=== PATIENT | male | born 1935 | race Caucasian/White ===

== ENCOUNTER 2018-03-15 07:40 | Inpatient (IN) | payer MEDICARE ==
[2018-03-15] MEDS ORDERED: Piperacillin/Tazobactam 4.5 GM VIAL ONE (09:26)
[2018-03-15 09:29] LABS: Bilirubin Small (Negative); Blood, Urine Small (Negative); Clarity CLOUDY (Clear); Glucose, Urine (Dipstick) Negative (Negative); Leukocyte Negative (Negative); Nitrite Negative (Negative); Protein, Urine (Dipstick) 100 mg/dL (Neg-Trace); Urobilinogen 0.2 mg/dL (0.2-1.0)
[2018-03-15 09:33] LABS: Bacteria/HPF None Seen HPF (None Seen); Hyaline Casts/LPF 7-10 HYALINE CAST LPF (0-3 Hyaline); Squamous Epithelial 0-3 HPF (0-3); WBC/HPF 0-3 HPF (0-3)
[2018-03-15] MEDS ORDERED: Acetaminophen 1,000 MG in Premix Bag 1 BAG IVPB SCH (11:00)
[2018-03-15] MEDS ORDERED: Dextrose 5 % And 0.9 % NaCl 1,000 ML IV SCH (11:45)
[2018-03-15 11:55] VITALS: BMI 29.4
[2018-03-15] MEDS ORDERED: Dextrose 5% in Water 1,000 ML IV PRN (12:27)
[2018-03-15] MEDS ORDERED: Dextrose 50% Abboject 50 ML SYRINGE SLOW IVP PRN (12:27)
[2018-03-15] MEDS ORDERED: HumaLOG 300 UNITS/3 ML VIAL SC PRN ×2 (12:27)
[2018-03-15] MEDS ORDERED: Ondansetron HCl/PF 4 MG/2 ML Vial IVP PRN (12:27)
[2018-03-15] MEDS ORDERED: Ondansetron ODT 4 MG TAB PO PRN (12:27)
[2018-03-15] MEDS ORDERED: Vancomycin HCl 1 GM in Sodium Chloride 0.9% 250 ML 250 ML IVPB SCH (12:30)
[2018-03-15] MEDS ORDERED: Acetaminophen/Codeine 30-300mg Tablet PO PRN (12:36)
[2018-03-15 13:42] LABS: Lactic Acid 1.9 mmol/L (0.5-2.2)
[2018-03-15] MEDS ORDERED: Vancomycin HCl 1.5 GM in Sodium Chloride 0.9% 250 ML 300 ML IVPB SCH (14:00)
[2018-03-15] MEDS: Sodium Chloride 0.9% 1,000 ML IV SCH ×2 (14:50→20:21)
[2018-03-15] MEDS: cefTRIAXone\\ROCEPHIN 2 GM in Sodium Chloride 0.9% 100 ML IVPB SCH (14:50)
[2018-03-15 15:29] LABS: Troponin I 1.851 ng/mL (< 0.028)
--- NOTE | 2018-03-15 16:06 | CON ---
DATE OF CONSULTATION: 03/15/2018 CONSULTING PHYSICIAN: ER Dept CONSULTED PHYSICIAN: Oz Brown M.D. REASON FOR CONSULTATION: Kidney stone and flank pain. HISTORY OF PRESENT ILLNESS: Mr. Sauer is an 82-year-old white male who was transferred from [facility] to [facility] in [place] for issues regarding a ureteral stone with significant comorbidities. The patient has been dealing with this kidney stone for the past several weeks now. He recently saw a urologist at [facility] who had diagnosed this stone on CT and a 7 mm proximal left ureteral stone. He had originally got a KUB for plans for ESWL; however, the stone was radiolucent or at least obscured by significant constipation. The plan was originally to do a bowel prep and then attempt to get another KUB to see if the stone could be visualized. Unfortunately, during this time, the patient's significantly declined with increasing shortness of breath, weakness, decreasing urine output and significant malaise. At no point did he have any fevers or chills. When he became so weak and stopped urinating, the called the ambulance and he was taken to [facility]. He underwent labs and a CT scan there which demonstrated a creatinine of 3.8 and white count of [address] demonstrating the stone in an unchanged position with mild hydronephrosis on the left. The patient was still unable to urinate and was then transferred to [facility] for higher level of care. Upon arrival here, I was consulted and met with the patient who states that he is complaining of approximately 7-10 pain in the left, which is sharp and stabbing and radiating down towards the groin. He has not had any nausea or vomiting, just pain. He denies shortness of breath. He denies any chest pain, denies fevers, but states he feels very bad and feels weak. He is answering some questions, but does not answer many questions. His does provide a lot of a history for him. He apparently at baseline does not have a significant difficulty with urination. He does have a prior history of kidney stones. He does not normally have problems with urinary tract infections. He denies any previous urologic surgeries on the prostate or kidney. ALLERGIES: None. CURRENT MEDICATIONS: 1. Aspirin. 2. Glyburide/metformin. 3. Carvedilol. 4. Lasix. 5. Baby aspirin. 6. Trajenta 7. Unspecified heart medication for CHF PAST MEDICAL HISTORY: 1. Coronary artery disease. 2. Congestive heart failure. 3. Type 2 diabetes. 4. Hypertension. 5. History of transient ischemic attack. 6. Elevated cholesterol. 7. Obesity. 8. Obstructive sleep apnea. PAST SURGICAL HISTORY: 1. Carotid endarterectomy. 2. A 5-vessel CABG. 3. Tonsillectomy. FAMILY HISTORY: Noncontributory. SOCIAL HISTORY: The patient does not smoke. He denies illicit drug use and does not drink alcohol. He is currently and lives with his . REVIEW OF SYSTEMS: A 12-point review of systems is significant for malaise, significant weakness, poor urine output, lower extremity swelling, difficulty with ambulation, shortness of breath, significant flank pain. He probably denies fever, chills, nausea, vomiting, blood in his stools, diarrhea, he does have constipation. The remainder of 12-point review of systems was reviewed and otherwise negative. PHYSICAL EXAMINATION: VITAL SIGNS: Temperature 97, pulse 93, blood pressure is 79/64, respiration rate 22, saturation 94% on 2 liters nasal cannula. GENERAL: Appears uncomfortable, is poorly communicative, appears in moderate amount of distress. Appears stated age. Otherwise, well-nourished, well- developed. HEENT: Normocephalic, atraumatic. Sclerae are nonicteric. Pupils symmetric and round. There is a carotid endarterectomy scar on the right. NECK: Trachea is midline. CARDIOVASCULAR: Regular rate and rhythm. Normal S1 and S2. CHEST: Increased work of breathing, but no significant respiratory distress. There is a median sternotomy scar, bibasilar crackles, symmetric expansion of lungs. ABDOMEN: Soft, nondistended. There is tenderness on the left flank. Positive left CVA tenderness. Protuberant belly. No organomegaly as the patient has got significant ____(07:33). GENITOURINARY: Rangel catheter in place draining mercedes colored urine upon placement of the catheter, only approximately 300 mL of urine was released, which appears heavily concentrated. EXTREMITIES: No clubbing or cyanosis, 1+ edema bilaterally. MUSCULOSKELETAL: No joint deformities or joint erythema noted. The patient does have full range of motion, but had significant lower extremity weakness. Upper extremities are slightly weak, but the patient is able to move all extremities equally. NEUROLOGIC: Cranial nerves II-XII appear grossly intact. There are no obvious motor or sensory deficits identified. SKIN: Warm, dry, poor turgor. PSYCHIATRIC: Alert and oriented x3, appropriate mood and affect. LABORATORY AND X-RAY FINDINGS: No new labs were taken from our institution. Previous labs demonstrate a creatinine of 3.8, BUN of 49, sodium level of 137, potassium of 4.5. A BNP of 970. White count of 10.8. Troponin of 0.227. Urinalysis done here demonstrates 100 protein, small blood, small bilirubin, 4- 6 red cells, nitrite negative, leukocyte esterase negative, no bacteria seen. CT from [facility] demonstrates a 7 x 4 x 4 mm left proximal ureteral stone with mild hydronephrosis and significant perinephric stranding, multiple simple renal cyst, nonobstructing left lower pole renal calculus. ASSESSMENT AND PLAN: An 82-year-old white male with multiple comorbidities with current hypotension along with acute kidney injury on chronic renal failure with oliguria, probably with evidence of volume overload based on BNP and symptoms with a left ureteral stone which is causing the patient pain. This is a very complicated case which required significant coordination of care. I have spoken with Dr. Kaur in Anesthesia, Dr. Kaufman in Radiology. With discussion of possibility of ureteral stenting or nephrostomy tube for decompression of the left kidney, the kidney did not have significant hydronephrosis, but I suspect that is the case because the patient is oliguric and not producing much urine. Most of his urine production is probably being shunted to the right kidney which is the favored side if it is unobstructed. The patient is currently taking his aspirin and Dr. Kaufman feels that it would be difficult or dangerous to attempt multiple passes of the needle to attempt to get a nondilated collecting system which would increase the patient's risk for perinephric hematoma. He feels that this may be able to be achieved by dedicated interventional radiologist, which we currently do not have at the time. From my standpoint speaking with Anesthesia, they feel that he is extremely high risk to undergo any kind of sedation, attempts to do TIWA would be difficult as he would be high risk for conversion, intubation, and rapid sequence intubation, which would potentially require succinylcholine which could cause arrhythmia if the patient has significant elevations to cath him with his kidney failure. Also, his heart is in bad shape and Anesthesia could potentially worsen this. In essence, he has no very good options here. I discussed two options with both Anesthesia and Radiology as well as the patient and his . One would be considered transfer of care to a higher level facility, which has currently dedicated Interventional Radiology on-call. At which point, he could have a nephrostomy tube placed which would alleviate his pain and he can undergo medical resuscitation for his heart failure. Alternatively, he could stay here and undergo medical management for optimization of his blood pressure and heart failure as well as pain control and Lasix administration. At which point, if he ends up with more hydronephrosis on the left side with increased urine production, then may be I will replace nephrostomy tube. Of these two options, I thought transfer would be the better option as the patient is significantly complex and they have severe deterioration while here. However, the family is somewhat undecided and reluctant about getting transferred again and it is not entirely reasonable for them to attempt care here. That said at the current time, he is not really a candidate for ureteral stent with anesthesia or an epidural/spinal according to Anesthesiology and the radiologist does not feel that he is currently adequate for nephrostomy tube, so from my standpoint, I do not think I have any options to offer that the current time other than the previously outlined plan. We will make further recommendations with the ER doctor and Hospitalist would be letting currently to the ICU. If the decision is to transfer, then I will support his notes to the receiving facility. If his option is to stay here, then I will continue to follow along and we will plan for a renal ultrasound in the morning. If it demonstrates more hydronephrosis, I think we could consider nephrostomy tube placement at that time. I agree with prophylactic antibiotics at the current time and I will defer to his cardiovascular resuscitation by the medical team. Obviously pain medication should be used sparingly as needed as they may cause further hypotension and acute kidney injury. I would avoid NSAIDs and Toradol in this individual and I will continue to follow along in this complex care. MAURICE
--- NOTE | 2018-03-15 16:22 | HP ---
DATE OF ADMISSION: 03/15/2018 PRIMARY CARE PROVIDER: Dr. Morgan Sher. CHIEF COMPLAINT: General weakness and abdominal pain. HISTORY OF PRESENT ILLNESS: This is an 82-year-old male who presents to [facility] cy Department in transfer from [facility] where patient initially presented with increased abdominal pain, general weakness, lethargy, decreased appetite and no urination over 24 dawn rs. The patient apparently developed symptoms in the last 48-72 hours with progressive weakness, inc reasing abdominal pain, localizing to the left lower quadrant and left flank area with associated dys uria, but no nausea or vomiting. The patient's last bowel movement was in the last 48 hours and appa rently normal per his report. Patient denied any blood in the urine or stool and denies any recent t ravel history. The patient's appetite has decreased as stated previously as well as activity level a nd alertness. According to the , the patient is normally very attentive, alert; however, over th e last 24-48 hours has become more sleepy and less interactive. The patient's history is significant for a myocardial infarction sustained in 12/2017 as well as a TIA sustained in 02/2018. The patient also underwent a right carotid endarterectomy in 02/2018 but states he has never really fully recove red and had his energy level returned after this procedure. The patient denied any recent visual dis turbance, unilateral weakness, difficulty with speech, or headache. The patient denied any specific change to his chronic medication regimen. In the emergency room, the patient underwent general evalu ation including CT imaging of the abdomen without contrast showing evidence of a 7 mm left mid ureter al calculus with mild hydronephrosis and perinephric stranding. The patient also was noted hypotensi ve, receiving intravenous fluids after concern for sepsis. The patient was noted with a temperature max of 100 degrees Fahrenheit receiving IV Zosyn, Ofirmev, and D5 half normal saline. The patient wa s noted with persistent hypotension, mildly responsive to fluids. The patient was evaluated by the U rology service in the emergency room with recommendations for stabilization of vital signs due to hig h surgical risk for intervention such as a cystoscopy or placement of percutaneous nephrostomy tubes. The patient was transferred to the Intermediate Care Unit for further evaluation and stabilization. PAST MEDICAL HISTORY: 1. Coronary artery disease. 2. Status post myocardial infarction with cardiac stent placement. 3. History of renal lithiasis. 4. History of transient ischemic attack. 5. Carotid artery disease. 6. Hypertension. 7. Hyperlipidemia. 8. Diabetes mellitus type 2. PAST SURGICAL HISTORY: 1. Status post right carotid endarterectomy, 02/2018. 2. Status post coronary artery bypass grafting x2 vessels. 3. Status post cardiac stent placement. 4. Status post tonsillectomy. CURRENT MEDICATIONS: 1. Tylenol No. 3, 300/60 mg 1 tab p.o. q.6 hours p.r.n. 2. Enteric-coated aspirin 81 mg p.o. daily. 3. Coreg 25 mg p.o. b.i.d. 4. Lasix 40 mg p.o. daily. 5. Glyburide/metformin 5/500 mg 1 tab p.o. b.i.d. 6. Zofran 4 mg p.o. q.4 hours p.r.n. 7. Crestor 10 mg p.o. at bedtime. 8. Entresto 24/26 mg 1 tab p.o. b.i.d. 9. Brilinta 90 mg p.o. b.i.d. ALLERGIES: No known drug allergies. FAMILY HISTORY: Positive for hypertension. SOCIAL HISTORY: The patient is and resides in [place], [place]. Retired. No current alcoho l, tobacco or illicit drug use. REVIEW OF SYSTEMS: The following complete review of systems was negative, unless otherwise mentioned in the HPI or below: Constitutional: Weight loss or gain, ability to conduct usual activities. Sk in: Rash, itching. Eyes: Double vision, pain. ENT/Mouth: Nose bleeding, neck stiffness, pain, te nderness. Cardiovascular: Palpitations, dyspnea on exertion, orthopnea. Respiratory: Shortness of breath, wheezing, cough, hemoptysis, fever or night sweats. Gastrointestinal: Poor appetite, abdom inal pain, heartburn, nausea, vomiting, constipation, or diarrhea. Genitourinary: Urgency, frequenc y, dysuria, nocturia. Musculoskeletal: Pain, swelling. Neurologic/Psychiatric: Anxiety, depressio n. Allergy/Immunologic: Skin rash, bleeding tendency. PHYSICAL EXAMINATION: VITAL SIGNS: Currently, blood pressure 82/42, pulse 97, respiratory rate is 16, temperature 99.3 deg jayashree Fahrenheit, O2 saturation 94% on 2 liters per minute by nasal cannula. GENERAL APPEARANCE: This is an 82-year-old male, alert when engaged in conversation with s ome lethargy when not engaged in conversation, oriented x3 and in no acute distress. HEENT: Pupils are equal, round, and reactive to light and accommodation. Extraocular muscles are in tact. No scleral icterus, no conjunctival injection. Nares patent. OP is clear. Oral mucosa dry a ppearing. NECK: Supple, no cervical adenopathy. Post-surgical changes in the right anterior neck consistent w ith recent endarterectomy. Mild edema noted. No thyromegaly. Cervical spine with full active and p assive range of motion. CHEST: Lungs are clear to auscultation bilaterally. CARDIOVASCULAR: S1, S2, without murmur, rub or gallop. ABDOMEN: Obese with mild distention. Bowel sounds are positive in all 4 quadrants. Mild tenderness to palpation in the left flank region. No palpable mass. No rebound or guarding noted. EXTREMITIES: Bilateral pitting edema to the mid shins. Pulses palpable distally at the dorsalis ped is, posterior tibial, and popliteal arteries bilaterally. Capillary refill less than 2 seconds. NEUROLOGIC: Alert and oriented x3. Mild lethargy. Answers questions when directly engaged in conve rsation. Cranial nerves II-XII are grossly intact. No other focal or lateralizing signs appreciated . PERTINENT LABORATORY AND X-RAY FINDINGS: Sodium 137, potassium 4.5, chloride 104, CO2 of 21, BUN 50, creatinine 3.8, estimated GFR 16, calcium 8.65, glucose 68. LFTs within normal limits. Albumin 3.4 . CK-MB 1.4, troponin 0.227. BNP 977. CBC showed a white blood cell count of 10.38, hemoglobin 9.3 , hematocrit 29, platelet count 202 with 85% neutrophilia. PT 15, INR 1.2. CT of the abdomen and pe lvis without contrast showed a 7 x 4 x 4 mm mid left ureteral obstructing calculus with moderate left hydronephrosis and marked perinephric stranding. EKG dated 03/15/2018 by my interpretation shows si nus mechanism with heart rates in the 90s. Attenuated R waves noted in the precordial leads. Intrav entricular block noted. Normal axis. No acute ST-T wave changes appreciated. ASSESSMENT AND PLAN: 1. Septic shock. The patient will be admitted to the intermediate care unit. We will continue aggr essive IV fluid hydration with normal saline. The patient received appropriate sepsis protocol fluid resuscitation initially in the emergency room. We will continue normal saline at 125 mL per hour. We will consider vasopressors if clinically indicated. Currently, patient responding to IV fluid res uscitation. The patient initially received Zosyn in the emergency room. We will continue vancomycin 1 gram IV x1 now with additional Rocephin 2 grams IV q.24 hours. Blood and urine cultures pending. 2. Left ureteral obstructing calculus. Consult Urology service for monitoring. The patient likely will need percutaneous nephrostomy tube placement within the next 24 hours. We will continue IV hydr ation and monitor renal status. No current recommendation to pursue extraction of the calculus due t o unstable vital signs and recurrent sepsis. 3. Acute kidney injury secondarily to #2. We will continue IV fluid hydration and monitor I's and O 's. Avoid diuretics. Avoid nephrotoxic agents and contrast media. Repeat creatinine in the a.m. 4. Acute metabolic encephalopathy. Suspect secondarily to #1. We will continue treatment as outlin ed in #1 with general supportive measures. Serial neurologic assessment. 5. Chronic normocytic anemia. Stable currently. We will continue serial CBC monitoring. No curren t evidence of acute blood loss. 6. Status post right carotid endarterectomy. Stable currently. We will continue general supportive measures. Continue aspirin 81 mg daily. 7. Diabetes mellitus type 2. Insulin sliding scale for reflexive coverage. Hold oral hypoglycemics due to acute kidney injury. Accu-Cheks a.c. and at bedtime. 8. Prophylaxis. Sequential compression devices while in bed. Pepcid 20 mg p.o. b.i.d. PT evaluati on in the a.m. 9. Code status is DO NOT RESUSCITATE, confirmed with the patient and . Surrogate medical decisi on maker is patient's spouse. Total critical care time is 45 minutes.
[2018-03-15] MEDS ORDERED: Aspirin 325 MG TAB PO SCH (17:00)
[2018-03-15 19:09] LABS: Troponin I 2.955 ng/mL (< 0.028)
[2018-03-15] MEDS ORDERED: Enoxaparin Sodium 100 MG/ML SYRINGE SC SCH (19:30)
[2018-03-15] MEDS: TICAGRELOR 90 MG TABLET PO SCH (20:17)
[2018-03-15] MEDS: Famotidine 20 MG TAB PO SCH (20:18)
[2018-03-15] MEDS: Rosuvastatin 10 MG TAB PO SCH (20:18)
[2018-03-16 04:29] LABS: ALT (SGPT) 9 U/L (8-55); AST (SGOT) 19 U/L (5-34); Albumin 2.3 g/dL (3.4-4.8); Alkaline Phosphatase 47 U/L (40-150); Anion Gap 8 mmol/L (10-20); BUN (Urea Nitrogen) 44 mg/dL (8.4-25.7); Bilirubin, Total 0.5 mg/dL (0.2-1.2); Calc. Creatinine Clearance 24 mL/min (70-130); Carbon Dioxide 14 mmol/L (23-31); Chloride 119 mmol/L (98-107); Estimated GFR-MDRD 19; Globulin 1.9 g/dL (2.4-3.5); Magnesium 1.1 mg/dL (1.6-2.6); Potassium 3.1 mmol/L (3.5-5.1); Protein, Total 4.2 g/dL (5.8-8.1); Sodium 138 mmol/L (136-145)
[2018-03-16 04:35] LABS: Calcium 5.9 mg/dL (7.8-10.44); Glucose 59 mg/dL (83-110)
[2018-03-16 05:00] LABS: Band 1 % (5-11); Hemoglobin 6.5 g/dL (14.0-18.0); Lymphocytes 6 % (21-51); MDiff Complete? YES; Mean Corpuscular HGB CONC 33.4 g/dL (32.0-36.0); Mean Corpuscular Hemoglobin 30.1 pg (27.0-31.0); Mean Corpuscular Volume 90.1 fl (80.0-94.0); Mean Platelet Volume 8.8 fL (7.4-10.4); Monocytes 7 % (0-10); Neutrophil 86 % (42-75); Platelet Count 140 thou/uL (130-400); RBC Distribution Width 16.7 % (11.5-14.5); Red Blood Cell (RBC) Count 2.17 mill/uL (4.70-6.10); White Blood Cell (WBC) Count 7.2 thou/uL (4.8-10.8)
[2018-03-16] MEDS: Sodium Chloride 0.9% 1,000 ML IV SCH ×4 (08:30→23:11)
[2018-03-16] MEDS: Enoxaparin Sodium 100 MG/ML SYRINGE SC SCH ×2 (08:31→08:39)
[2018-03-16] MEDS: Famotidine 20 MG TAB PO SCH ×2 (08:32→20:09)
[2018-03-16] MEDS: Calcium Carbonate 500 MG TAB PO SCH ×2 (08:32→17:08)
[2018-03-16] MEDS: Aspirin 81 mg Enteric Coated Tablet PO SCH (08:32)
[2018-03-16] MEDS: TICAGRELOR 90 MG TABLET PO SCH (08:32)
[2018-03-16 11:18] LABS: #Eosinphils 0.1 thou/uL (0.0-0.7); #Lymphocytes 0.5 thou/uL (1.20-3.40); #Monocytes 0.7 thou/uL (0.11-0.59); #Neutrophils 9.4 thou/uL (1.40-6.50); %Basophils 0.1 % (0.0-1.0); %Eosinophils 0.6 % (0.0-10.0); %Lymphocytes 4.8 % (21.0-51.0); %Monocytes 6.8 % (0.0-10.0); %Neutrophils 87.7 % (42.0-75.0); Hemoglobin 9.1 g/dL (14.0-18.0); Mean Corpuscular HGB CONC 32.5 g/dL (32.0-36.0); Mean Corpuscular Hemoglobin 29.1 pg (27.0-31.0); Mean Corpuscular Volume 89.5 fl (80.0-94.0); Mean Platelet Volume 8.7 fL (7.4-10.4); Platelet Count 197 thou/uL (130-400); RBC Distribution Width 16.7 % (11.5-14.5); Red Blood Cell (RBC) Count 3.11 mill/uL (4.70-6.10); White Blood Cell (WBC) Count 10.7 thou/uL (4.8-10.8)
[2018-03-16] MEDS: cefTRIAXone\\ROCEPHIN 2 GM in Sodium Chloride 0.9% 100 ML IVPB SCH (12:09)
--- NOTE | 2018-03-16 12:14 | PRG ---
DATE OF SERVICE: 03/16/2018 SUBJECTIVE: The patient states that he is feeling alright today. He is having occasional bladder sp asms and some cramping on the left side, but otherwise states he has not had any significant chest pa in, shortness of breath, difficulty breathing or uncontrolled pain and no nausea, vomiting, fevers or chills. He has not had a bowel movement in several days and feels extremely constipated and is aski ng for some help for relief with this. PHYSICAL EXAMINATION: VITAL SIGNS: Temperature 98.9, pulse 94, respirations 18, blood pressure 91/57, saturation 96% on ro om air. Ins and outs: The patient had 2400 mL total intake with 534 mL of total output. GENERAL: Appears slightly uncomfortable, but otherwise is communicative and alert, answering questio ns appropriately. CARDIOVASCULAR: Regular rate and rhythm. Normal S1 and S2. CHEST: Bibasilar crackles. Slight increased work of breathing, but symmetric expansion of lungs. ABDOMEN: Protuberant, soft, no palpable bladder, nontender, nondistended, positive bowel sounds. GENITOURINARY: Rangel catheter is in place. It appears to have a very small amount of mercedes colored urine. The catheter was irrigated with approximately 120 mL of normal saline which flushed easily. There is no evidence of blood or sediment within the catheter. EXTREMITIES: 1+ edema bilaterally. LABORATORY EVALUATION: A full set of labs in the [employer] system, which I have reviewed. Of note, t he patient's hemoglobin was 6.5 as of 3:39. Repeat check at 11 o'clock was 9.1. White count is 10.7 , creatinine is currently 3.13, which has improved somewhat. Troponins continue to slowly trend upwa rds at 2.955. Urine and blood cultures currently have demonstrated no growth, but are currently pend ing. ASSESSMENT AND PLAN: An 82-year-old white male with an obstructing stone on the left with minimal hy dronephrosis at the time of presentation. He has received a significant amount of fluids and has poo r urine output, likely secondary to third spacing and renal failure. I would like to repeat an ultra sound today to see if there is more hydronephrosis with his resuscitative efforts. If there is, then I think he should go for a percutaneous nephrostomy tube. He is currently on antibiotics for presum ptive sepsis although nothing has grown at this time and the patient has remained afebrile. It is po ssible that he was meeting a systemic inflammatory response syndrome criteria at the time of admissio n. He should continue on IV antibiotics for now. We will get the ultrasound and see if he will be a menable for a nephrostomy tube. I would recommend continuation of the Rangel catheter for the time be ing. Given the patient's constipation, I will go ahead and start him on lactulose which should not h ave any effect on his renal function or electrolyte levels. The rest of his medical issues are curre ntly being managed by Medicine or other consultants that have been consulted for him. I will continu e to follow along and make recommendations.
--- NOTE | 2018-03-16 12:17 | CON ---
DATE OF CONSULTATION: 03/16/2018. REASON FOR CONSULTATION: Congestive heart failure, hypotension, probable sepsis, coronary artery dis ease, recent carotid endarterectomy. HISTORY OF PRESENT ILLNESS: Mr. Sauer is an 82-year-old man with multiple medical problems as outlin ed above. Mr. Sauer has received most of his care at the [facility] system. The patient has undergone co ronary artery bypass grafting in the mid 1999s x5. He underwent repeat cardiac catheterization and s tent implantation over a year ago by Dr. Bimal Guevara in [place]. The other grafts were patent. The patient also had carotid endarterectomy after TIAs. The carotid endarterectomy was done recently less than a month ago at the [facility] institution. The patient to begin getting abdominal pain, progressive weakness and no urination. He was found to have renal failure, thought to be septic as well as hydronephrosis. [facility] PAST MEDICAL HISTORY: 1. Coronary artery disease complicated as outlined above. 2. Previous myocardial infarction, previous stent. 3. History of congestive heart failure. 4. History of transient ischemic attack. 5. History of carotid arterial disease with post-surgery. 6. History of hypertension, but blood pressure has been low recently. PAST SURGICAL HISTORY: 1. Carotid endarterectomy, 03/06/2018. 2. Bypass surgery in the mid 1999s x5, according to the patient's , who is a very good historian . 3. Previous cardiac stent implantation over a year ago in [place]. MEDICATIONS PRIOR TO ADMISSION: 1. Aspirin. 2. Coreg. 3. Lasix. 4. Crestor. 5. Entresto. 6. Brilinta. ALLERGIES: None known. FAMILY HISTORY: Positive for hypertension. SOCIAL HISTORY: He is , lives in [place]. No alcohol or drugs. REVIEW OF SYSTEMS: Not currently obtainable. He is very sleepy, does not answer questions and is mi ldly confused. PHYSICAL EXAMINATION: VITAL SIGNS: Blood pressure was 82/42 last night, now at 86 systolic. Pulse 90s. HEENT: Eyes, sclerae nonicteric. Mouth mucous membranes moist. NECK: Supple, no lymphadenopathy. LUNGS: Clear, no wheezing, rales or rhonchi. CARDIAC: Normal S1, normal S2. There is no murmur, rub or gallop. ABDOMEN: Soft, nontender, no hepatosplenomegaly. EXTREMITIES: Warm, dry, no clubbing or cyanosis. There is moderate edema. PERTINENT LABORATORY DATA: Creatinine is 3.8. The hemoglobin dropped all the way down to 6.5, it wa s 9.3 in [place]. Creatinine is 3.1. GFR is 19. IMAGING: The EKG appears to have a bundle branch block. I actually do not see the 12-lead on the art. We will order EKG and did have a nonsustained episode of V-tach at 12 beats of V-tach. Echocardiogram has been ordered. EKG in [place] did reveal normal sinus rhythm with nonspecific in traventricular conduction delay. ASSESSMENT: 1. Congestive heart failure, probably advanced with systolic, chronic. 2. Renal failure, acute, stage 4 now. 3. Probable sepsis. 4. Previous bypass surgery. 5. Previous stent implantation. 6. Severe anemia. 7. Hypotension. 8. Recent carotid endarterectomy. PLAN: 1. Recheck blood counts, will probably need packed red blood cells. 2. Stop Lovenox. 3. Stop Brilinta. 4. Current code status: Do not resuscitate. 5. Intravenous antibiotics. We will continue to follow with you. Prognosis guarded.
--- NOTE | 2018-03-16 13:06 | PDOC.PN ---
- Subjective Encounter Start Date: 03/16/18 Encounter Start Time: 13:05 Subjective: f/u for septic shock and L ureteral calculus with obstruction managed -: with IVF's, IV abx. BP maintained in 90's. Minimal urine output per -: nursing. Feels better overall, less confused. - Objective Resuscitation Status: Resuscitation Status DNR:Do Not Resuscitate MAR Reviewed: Yes Vital Signs & Weight: Vital Signs (12 hours) Temp Pulse Resp BP Pulse Ox 03/16/18 11:18 98.9 F 94 18 91/57 L 96 03/16/18 10:00 92 20 86/51 L 97 03/16/18 07:35 98.0 F 87 16 90/50 L 98 03/16/18 07:29 98 F 82 20 100 03/16/18 03:00 98.6 F 82 24 H 94/54 L 100 Weight Weight 205 lb I&O: 03/15/18 03/16/18 03/17/18 06:59 06:59 06:59 Intake Total 2400 240 Output Total 534 Balance 1866 240 Result Diagrams: 03/16/18 11:02 03/16/18 03:39 Additional Labs: Accuchecks 03/16/18 03/16/18 03/15/18 10:51 05:40 21:04 POC Glucose 193 H 81 183 H 03/15/18 16:16 POC Glucose 150 H Microbiology 03/15/18 17:40 Urine voided Urine Culture - Preliminary NO GROWTH AT 12 HOURS 03/15/18 09:26 Venous blood - Right Hand Blood Culture - Preliminary Specimen has been received and culture in progress. No Growth to date. 03/15/18 09:26 Venous blood - Left Hand Blood Culture - Preliminary Specimen has been received and culture in progress. No Growth to date. Laboratory Tests 03/15/18 03/15/18 03/16/18 14:52 18:33 03:39 Hgb 6.5 L Neutrophils % Neutrophils % (Manual) 86 H Troponin I 1.851 H* 2.955 H* 03/16/18 11:02 Hgb Neutrophils % 87.7 H Neutrophils % (Manual) Troponin I EKG Reviewed by me: Yes (Tele - SR with short run SVT) Phys Exam - Physical Examination alert, responds to questions HEENT: PERRLA, moist MMs, sclera anicteric, oral pharynx no lesions R neck with surgical changes consistent with R CEA Neck: no nodes, no JVD, supple, full ROM Respiratory: no wheezing, no rales, no rhonchi, clear to auscultation bilateral S1, S2 Cardiovascular: RRR, no significant murmur, no rub, gallop mild distention Gastrointestinal: soft, non-tender, positive bowel sounds LE edema bilat Musculoskeletal: pulses present Neurological: normal sensation, moves all 4 limbs A x O x 2 Skin: no rash, normal turgor, cap refill <2 seconds Deviation from normal: Rangel catheter with scant, dark urine Dx/Plan (1) SIRS (systemic inflammatory response syndrome) Code(s): R65.10 - SIRS OF NON-INFECTIOUS ORIGIN W/O ACUTE ORGAN DYSFUNCTION Status: Acute Comment: Blood/Ucx negative today, continue empiric IV abx given ureteral calculus, await final blood cx results (2) Left ureteral calculus Code(s): N20.1 - CALCULUS OF URETER Status: Acute Comment: Renal sono today to assess for hydronephrosis and whether nephrostomy tubes can be placed, continue IV abx as stated in #1 (3) Oliguria Code(s): R34 - ANURIA AND OLIGURIA Status: Acute Comment: Secondary to #1, # 2, continue IVF's, avoid nephrotoxic meds and contrast, continue Rangel catheter (4) ELVA (acute kidney injury) Code(s): N17.9 - ACUTE KIDNEY FAILURE, UNSPECIFIED Status: Acute Comment: Mild improvement in creatinine value but urine output diminished, see above (5) Hypokalemia Code(s): E87.6 - HYPOKALEMIA Status: Acute Comment: KCL 40meq BID, repeat K + level in am (6) Encephalopathy, metabolic Code(s): G93.41 - METABOLIC ENCEPHALOPATHY Status: Acute Comment: Persistent but improved, multifactorial, continue supportive mgmt (7) Metabolic acidosis Code(s): E87.2 - ACIDOSIS Status: Acute Comment: Secondary to ELVA, tx underlying etiology, percutaneous nephrostomy tubes planned (8) Elevated troponin I level Code(s): R74.8 - ABNORMAL LEVELS OF OTHER SERUM ENZYMES Status: Acute Comment: Likely demand ischemia in context of SIRS, ureteral calculus and hx of CAD, consult Cardiology, Lovenox given x 1 (9) DM II (diabetes mellitus, type II), controlled Code(s): E11.9 - TYPE 2 DIABETES MELLITUS WITHOUT COMPLICATIONS Status: Chronic Comment: ISS, serial accuchecks (10) Normocytic anemia Code(s): D64.9 - ANEMIA, UNSPECIFIED Status: Chronic Comment: hematuria noted in Rangel catheter due to ureteral calculus, no other evidence of active loss, serial H/H - Plan plan discussed w/ family, continue antibiotics, PT/OT, sr. social media & mobile manager Continue Rocephin and Vancomycin pending final blood/Ucx results -: Decrease IVF's 100ml/h -: KCL 40meq BID -: Renal sono today to assess for hydronephrosis -: AM Lab: BMP, CBC * .
[2018-03-16] MEDS ORDERED: Potassium Chloride 20 MEQ TAB PO SCH (13:30)
[2018-03-16 13:51] LABS: Vancomycin, Random 15.4 ug/mL (See Comment)
--- NOTE | 2018-03-16 14:08 | CON ---
DATE OF CONSULTATION: 03/16/2018 HISTORY OF PRESENT ILLNESS: Mr. Sauer is an 82-year-old male, who was admitted with ureteral obstruc tion. He was hypotensive on admission. He is in intermediate care unit. Blood cultures so far negative. Urine culture was actually negativ e as well. We were consulted because of his presence in intermediate care unit. PAST MEDICAL HISTORY: Remarkable for; 1. Nephrolithiasis in the past. 2. History of coronary artery disease. 3. History of coronary stenting. 4. History of transient ischemic attack. 5. History of carotid disease. 6. History of hypertension. 7. Lipid disorder. 8. Diabetes. 9. Recent carotid endarterectomy done in [place]. 10. History of a coronary artery bypass grafting x2. 11. History of tonsillectomy. MEDICATIONS: Prior to admission he was on aspirin, Coreg, Lasix, glyburide, metformin, Zofran, Crest or, Entresto, Brilinta. SOCIAL HISTORY: He lives in [place]. He is nonsmoker, nondrinker, does not use drugs. FAMILY HISTORY: Positive for hypertension. Negative for lung disease. ALLERGIES: He has no reported drug allergies. REVIEW OF SYSTEMS: Essentially negative ten point. He says he feels much better than he felt yester day. PHYSICAL EXAMINATION: GENERAL: He is afebrile, heart rate 94, respiratory rate is 18, oximetry is 96 on room air, blood pr essure 91/57. HEAD AND NECK: Unremarkable. LUNGS: Clear. HEART: Regular rhythm. S1 and S2 are normal. ABDOMEN: Soft and nontender. EXTREMITIES: Without clubbing, cyanosis, or edema. LABORATORY DATA: His hemoglobin was 6.5 this morning, it is 9.1 now; white count 10.7. I do not see any orders for tr ansfusion in the computer. Urology has been consulted. IMPRESSION: Ureteral obstruction. There was no intervention performed so far, unfortunately he is n ot bacteremic and has negative urine cultures. She will continue with volume resuscitation. His creatinine 3.13. It is unclear to me what his baseline is. There is no prior renal function lab . His albumin is 2.3. He might benefit from 25% albumin to help with his blood pressure. We will foll ow with the other physicians caring for him while he is in the Intermediate Care Unit. This is a 50 minute consult, greater than 50% of the time was spent on the unit coordinating care.
[2018-03-16] MEDS: Vancomycin HCl 750 MG in Sodium Chloride 0.9% 250 ML 250 ML IVPB SCH (14:19)
--- NOTE | 2018-03-16 16:38 | ULT ---
RENAL ULTRASOUND: HISTORY: Evaluate for hydronephrosis. The patient has an obstructing calculus in the left kidney. COMPARISON: None. CORRELATION: Recent CTs performed at the [facility] on 03/15/2018 and on 03/12/2018. FINDINGS: Bilateral renal cortical cysts are again noted. Bilaterally, no hydronephrosis. The right kidney measures 12 x 6 x 6.2 cm. The left kidney measures 6.6 x 7.1 x 13.7 cm. The urinary bladder is decompressed due to the Rangel catheter. Incidental distended gallbladder, measuring 11.3 cm. IMPRESSION: 1. No hydronephrosis. 2. Bilateral renal cortical cysts, better demonstrated on recent CT. 3. Incidental gallbladder distention. POS: ALEXANDRA
[2018-03-16] MEDS: Albumin 25% 25 GM/100 ML BOT IVPB SCH ×2 (17:08→23:12)
[2018-03-16] MEDS: Potassium Chloride 20 MEQ TAB PO SCH ×2 (17:08→18:15)
[2018-03-16] MEDS: Rosuvastatin 10 MG TAB PO SCH (20:09)
[2018-03-17] MEDS: Albumin 25% 25 GM/100 ML BOT IVPB SCH ×4 (05:18→23:33)
[2018-03-17 06:20] LABS: Anion Gap 17 mmol/L (10-20); BUN (Urea Nitrogen) 64 mg/dL (8.4-25.7); Calc. Creatinine Clearance 14 mL/min (70-130); Calcium 7.9 mg/dL (7.8-10.44); Carbon Dioxide 14 mmol/L (23-31); Chloride 111 mmol/L (98-107); Estimated GFR-MDRD 10; Glucose 214 mg/dL (83-110); Potassium 5.1 mmol/L (3.5-5.1); Sodium 137 mmol/L (136-145)
[2018-03-17 06:43] LABS: Band 8 % (5-11); Hemoglobin 8.1 g/dL (14.0-18.0); Lymphocytes 9 % (21-51); MDiff Complete? YES; Mean Corpuscular Hemoglobin 29.3 pg (27.0-31.0); Mean Corpuscular Volume 88.8 fl (80.0-94.0); Monocytes 5 % (0-10); Neutrophil 78 % (42-75); Platelet Count 183 thou/uL (130-400); RBC Distribution Width 16.7 % (11.5-14.5); Red Blood Cell (RBC) Count 2.76 mill/uL (4.70-6.10); White Blood Cell (WBC) Count 8.7 thou/uL (4.8-10.8)
[2018-03-17] MEDS: Potassium Chloride 20 MEQ TAB PO SCH (08:23)
[2018-03-17] MEDS: Aspirin 81 mg Enteric Coated Tablet PO SCH (08:24)
[2018-03-17] MEDS: Calcium Carbonate 500 MG TAB PO SCH ×2 (08:24→16:23)
[2018-03-17] MEDS: Famotidine 20 MG TAB PO SCH ×2 (08:24→20:49)
[2018-03-17] MEDS: Sodium Chloride 0.9% 1,000 ML IV SCH ×3 (08:36→20:49)
[2018-03-17] MEDS ORDERED: Furosemide 40 MG/4 ML VIAL SLOW IVP SCH (09:30)
--- NOTE | 2018-03-17 10:15 | PRG ---
DATE OF SERVICE: 03/17/2018 SUBJECTIVE: Mr. Sauer is more awake and alert today. He is cooperative. Physical therapy indicates that he is mildly confused, but more cooperative than yesterday. PHYSICAL EXAMINATION: VITAL SIGNS: His blood pressure 117/62, which is better; pulse 84 and regular. LUNGS: He has some bibasilar rales. CARDIOVASCULAR: Normal S1 and S2. ABDOMEN: Soft, nontender. EXTREMITIES: [id number] peripheral edema. PERTINENT LABORATORIES: Potassium is up to 5.1. He did not receive potassium today. Creatinine is up to 5.56 ASSESSMENT: 1. Renal failure, acute, becoming volume overloaded. 2. History of congestive heart failure, systolic. PLAN: 1. Reduce intravenous fluid to 80 mL per hour. 2. Give him a single dose of furosemide. 3. Stop potassium. 4. Suspect that if he does not start making urine soon, will probably need dialysis if the family wi shes to pursue that.
[2018-03-17] MEDS: cefTRIAXone\\ROCEPHIN 2 GM in Sodium Chloride 0.9% 100 ML IVPB SCH (12:26)
[2018-03-17 13:27] LABS: Vancomycin, Trough 20.8 ug/mL
[2018-03-17] MEDS: Vancomycin HCl 750 MG in Sodium Chloride 0.9% 250 ML 250 ML IVPB SCH (14:07)
--- NOTE | 2018-03-17 15:33 | PDOC.PN ---
- Subjective Encounter Start Date: 03/17/18 Encounter Start Time: 15:30 Subjective: f/u for ELVA/CKD with L ureteral calculus and suspected SIRS. Renal function -: worse today and urine output minimal. Had a difficult and restless night -: and sleeping most of the day. Appetite diminished. + BM. - Objective Resuscitation Status: Resuscitation Status DNR:Do Not Resuscitate MAR Reviewed: Yes Vital Signs & Weight: Vital Signs (12 hours) Temp Pulse Resp BP Pulse Ox 03/17/18 12:50 97.6 F 86 16 109/59 L 96 03/17/18 07:45 97.5 F L 84 14 117/62 96 03/17/18 07:19 97.5 F L 84 17 95 03/17/18 03:52 97.5 F L 84 17 107/62 98 Weight Weight 210 lb 1.6 oz I&O: 03/16/18 03/17/18 03/18/18 06:59 06:59 06:59 Intake Total 2400 3144.5 Output Total 534 135 Balance 1866 3009.5 Result Diagrams: 03/17/18 04:53 03/17/18 04:53 Additional Labs: Accuchecks 03/17/18 03/17/18 03/17/18 11:28 05:47 02:52 POC Glucose 215 H 222 H 229 H 03/16/18 03/16/18 20:07 16:08 POC Glucose 228 H 200 H Radiology Reviewed by me: Yes (2D echo - EF 25-30%, LAE, PA 50mmHg) EKG Reviewed by me: Yes (Tele - SR in 80's) Phys Exam - Physical Examination lethargic, opens eyes briefly HEENT: PERRLA, moist MMs, sclera anicteric, oral pharynx no lesions Neck: no nodes, no JVD, supple, full ROM few basilar crackles o/w clear Respiratory: no wheezing, no rhonchi S1, S2 Cardiovascular: RRR, no significant murmur, no rub, gallop mild distention Gastrointestinal: soft, non-tender, positive bowel sounds Musculoskeletal: pulses present, edema present lethargic but opens eyes to name, states a few words Neurological: normal sensation, moves all 4 limbs Skin: no rash, normal turgor, cap refill <2 seconds Deviation from normal: Rangel with scant, dark urine Dx/Plan (1) ATN (acute tubular necrosis) Code(s): N17.0 - ACUTE KIDNEY FAILURE WITH TUBULAR NECROSIS Status: Acute Comment: Suspect due to hypoperfusion injury, start Dopamine 2.5mcg IV today, avoid nephrotoxic meds and limit contrast exposure, renal dosing of medications , consult Nephrology, ? need for HD (2) SIRS (systemic inflammatory response syndrome) Code(s): R65.10 - SIRS OF NON-INFECTIOUS ORIGIN W/O ACUTE ORGAN DYSFUNCTION Status: Acute Comment: Blood/Ucx negative today, continue empiric IV abx given ureteral calculus, await final blood cx results (3) Left ureteral calculus Code(s): N20.1 - CALCULUS OF URETER Status: Acute Comment: Potential ureteral stent placement per Urology, no hydronephrosis noted on renal sono (4) ELVA (acute kidney injury) Code(s): N17.9 - ACUTE KIDNEY FAILURE, UNSPECIFIED Status: Acute Comment: Worsened renal function, likely multifactorial, no hydronephrosis documented on renal sono but urine output minimal (5) Hypokalemia Code(s): E87.6 - HYPOKALEMIA Status: Acute Comment: KCL 40meq BID, repeat K + level in am (6) Encephalopathy, metabolic Code(s): G93.41 - METABOLIC ENCEPHALOPATHY Status: Acute Comment: Persistent but improved, multifactorial, continue supportive mgmt (7) Metabolic acidosis Code(s): E87.2 - ACIDOSIS Status: Acute Comment: Secondary to ELVA, consider sodium bicarbonate gtt (8) Elevated troponin I level Code(s): R74.8 - ABNORMAL LEVELS OF OTHER SERUM ENZYMES Status: Acute Comment: Likely demand ischemia in context of SIRS, ureteral calculus and hx of CAD, consult Cardiology, Lovenox given x 1 (9) DM II (diabetes mellitus, type II), controlled Code(s): E11.9 - TYPE 2 DIABETES MELLITUS WITHOUT COMPLICATIONS Status: Chronic Comment: ISS, serial accuchecks (10) Normocytic anemia Code(s): D64.9 - ANEMIA, UNSPECIFIED Status: Chronic Comment: hematuria noted in Rangel catheter due to ureteral calculus, no other evidence of active loss, serial H/H - Plan plan discussed w/ family, continue antibiotics, PT/OT, social media assistant, DVT proph w/SCDs Continue supportive mgmt -: Start Dopamine for inotropic support -: Albumin 25gm IV q6h -: Continue IV NS 80ml/h -: Consult Nephrology today regarding ATN * AM lab: BMP, Vancomycin trough
[2018-03-17] MEDS ORDERED: DOPamine 400 MG/D5W 250 ML 250 ML IVPB SCH (15:45)
--- NOTE | 2018-03-17 16:05 | PRG ---
DATE OF SERVICE: 03/17/2018 SUBJECTIVE: Mr. Sauer is still intermittently confused and somnolent. His family is in the room and states that he never has fully recovered from myocardial infarction fol lowed by TIA. These events occurred within the last few weeks. He actually had a scheduled appointment I believe at the beginning of next week. Follow up with his signing agent. OBJECTIVE: VITAL SIGNS: He is afebrile, heart rate 86, respiratory rate 16, oximetry is 96 on room air. Blood pressure 109/59. LABORATORY DATA: Blood and urine cultures remain negative. After talking to family, it has become more my impression that his weaknesses may be the limiting fac tor with regards to management of his multiple medical problems. IMPRESSION: 1. Ureteral obstruction. 2. Decompensating renal function with the creatinine that has gone from 3 to 5.5. Potassium is 5.1 today. 3. Diabetes. His family says I believe his creatinine was in the 2-3 range prior to this admission. His prognosis is quite guarded. He is in no respiratory distress at this time. Dr. Amezcua has cut b ack on his IV fluids, which I would agree with.
--- NOTE | 2018-03-17 17:27 | PRG ---
DATE OF SERVICE: 03/17/2018 SUBJECTIVE: The patient states he is having no pain. He feels fine. He denies any chest pain or sh ortness of breath. His blood pressure and vitals have been better; however, his creatinine continues to decline with poor urine output. He has not shown any signs of progressing sepsis. PHYSICAL EXAMINATION: VITAL SIGNS: Temperature 97.5, pulse 84, respirations 14, blood pressure 117/62, saturation 96% on r oom air. Ins and outs 3.1 liters in, 135 mL output. GENERAL: No apparent distress, somnolent, does answer questions appropriately. CARDIOVASCULAR: Regular rate and rhythm. Normal S1 and S2. Symmetric pulses. CHEST: No increased work of breathing. Symmetric expansion of lungs with bibasilar crackles. ABDOMEN: Soft, nontender, nondistended, no organomegaly. Positive bowel sounds. No significant sup rapubic tenderness. GENITOURINARY: Rangel catheter in place with scant amount of urine output. EXTREMITIES: No clubbing, cyanosis or edema. LABORATORY DATA AND IMAGING DATA: On laboratory evaluation, a full set of labs in the [facility], which I have reviewed. Of note, the patient's hemoglobin is currently 8.1 with white count of 8.7 . Creatinine has further increased to 5.56. Renal ultrasound done yesterday demonstrates no evidenc e of hydronephrosis on either side. ASSESSMENT AND PLAN: An 82-year-old white male with renal failure, likely prerenal secondary to hear t failure with no evidence of hydronephrosis and severe oliguria. He does have an obstructing stone on the left and although I do not think a stent will dramatically improve his renal function, it will help somewhat in draining his left kidney and improve whatever function is present. I do think the patient needs a Nephrology consult as he may need to be dialyzed if he becomes volume overloaded due to his extremely poor urine output. I have spoken with Dr. Loera and Dr. Loera states that he is [facility] consulting Dr. Stewart. I have discussed with Dr. Loera and he feels that the patient would benefit fr om a ureteral stent. I think the stent would be beneficial also for prevention of further episodes o f sepsis, flank pain or flank colic which seemed to have precipitated the current septic episode caroline g with his cardiovascular decline on his recent ER visit with this admission. This may present again in the future if the stone shift or the patient began producing urine again. Therefore, I think sin ce the patient is hemodynamically stable at the moment, it may be beneficial to proceed forward with ureteral stent. Obviously, if his sand hauler or disability advocate feels this is not safe, then we will cancel the procedure with so long as we can go forward with a light sedative such as TIVA alone. I think a quick ureteral stent placement should prevent further problems in the future, and may potenti ally help the patient's kidney function slightly, although I think the majority of his renal failure is likely prerenal again. I have discussed this with the patient and explained the risks associated with anesthesia as well as the risk of ureteral stenting. The risks which include but are not limite d to bleeding, worsening urinary infection, inability to pass the stent, damage to the ureter, kidney or bladder, and need for further procedures. He understands and states he would be willing to go fo ard with ureteral stent. I will have the anesthesiologist talked to him and give their assessment as well. If anyone feel that he is exceedingly high risk, then we will obviously cancel the surgery as his primary problem again is probably not postrenal at this point. We will plan for his stent shannan ow and I will continue to follow along.
[2018-03-17 17:56] LABS: Bilirubin Moderate (Negative); Blood, Urine Large (Negative); Clarity TURBID (Clear); Glucose, Urine (Dipstick) Negative (Negative); Leukocyte Large (Negative); Nitrite Positive (Negative); Protein, Urine (Dipstick) 100 mg/dL (Neg-Trace); Specific Gravity, Urine 1.014 (1.002-1.036)
[2018-03-17 18:00] LABS: Yeast-AUWi Flag 1033.7 (0-25.0)
[2018-03-17 18:14] LABS: RBC/HPF GREATER THAN 50-TNTC HPF (0-3)
[2018-03-17 18:15] LABS: Bacteria/HPF 3+ HPF (None Seen); Crystals/HPF 1+ AMORPH URATES HPF (Negative); Hyaline Casts/LPF 0-3 HYALINE CAST LPF (0-3 Hyaline); Manual Microscopic Reviewed? No Path Casts Seen; Other Casts/LPF 4-6 FINELY GRAN LPF (0-3 Hyaline); Yeast-All Forms None Seen HPF (None Seen)
[2018-03-17] MEDS: Rosuvastatin 10 MG TAB PO SCH (20:49)
--- NOTE | 2018-03-17 23:16 | CON ---
DATE OF CONSULTATION: 03/17/2018 HISTORY OF PRESENT ILLNESS: Mr. Sauer is an 82-year-old white male who was initially admitted due to generalized weakness and abdominal pain. Initial evaluation showed that he may have nephrolithiasis with some degree of mild hydronephrosis. Urology has evaluated this patient. Initially, it was fel t that he may need percutaneous nephrostomy, but repeat imaging did not show any significant hydronep hrosis to have the percutaneous tube placed. The patient is also being considered for the possibilit y of sepsis. He has also been noted hypotensive since admission. Renal function has been worsening. Initially, h e was empirically volume repleted with no improvement with renal function. He was noted to also have decreased significantly urine output. We are now being consulted for the acute kidney injury on top of possible underlying chronic renal failure. REVIEW OF SYSTEMS: Positive for confusion. Positive for abdominal distention. No nausea, decreased appetite, decreased energy level. No chest pain or shortness of breath, no gross hematuria, no dysu fidel, no urinary frequency. Positive for back pain, no sore throat, no diplopia. MEDICATIONS: Currently on salt poor albumin 25 grams IV q.6, calcium carbonate 500 mg p.o. b.i.d., c eftriaxone 2 grams IV daily, dopamine drip, furosemide 60 mg IV x1 dose - currently on hold, lactulos e 20 grams t.i.d., normal saline at 80 mL per hour, rosuvastatin 10 mg at bedtime, vancomycin q.24 ho urs. PAST MEDICAL HISTORY: Coronary artery disease? of CHF, TIA, peripheral vascular disease, type 2 diab etes mellitus, hyperlipidemia, ? of chronic renal failure. PAST SURGICAL HISTORY: 1. Status post right carotid endarterectomy. 2. Status post cardiac catheterization. 3. Status post CABG. 4. Status post coronary stent placement. 5. Status post upper and lower GI endoscopy? SOCIAL HISTORY: The patient lives in [place], , five children with three as adopted. No IV drug abuse. Patient to start sedentary lifestyle. Currently, no alcohol or smoking. ALLERGIES: None. TRAUMA: None. IMMUNIZATIONS: Not up to date. HOSPITALIZATIONS: Please see past medical history. FAMILY HISTORY: No family history of ESRD. PHYSICAL EXAMINATION: VITAL SIGNS: Blood pressure is 96/70, heart rate 70. GENERAL: Arousable, confused, not in overt distress. SKIN: Adequate turgor. HEENT: Slightly pale conjunctivae, anicteric sclerae. NECK: No neck mass, no carotid bruits, no JVD. CHEST: No deformities. LUNGS: Decreased breath sounds, no wheezing. HEART: Normal sinus rhythm, grade 2/6 systolic murmur, no gallops or rubs. ABDOMEN: Globular, soft, nontender, no masses, ? of ascites. EXTREMITIES: Positive for edema. NEUROLOGIC: Confused, moving all extremities. No tremors. No asterixis. Decreased mentation. LABORATORY DATA: Laboratories of 03/17/2018; white count 8.7, hemoglobin 8.1. Sodium 137, potassium 5.1, chloride 111, carbon dioxide 14, BUN 64, creatinine 5.56, glucose 214, calcium 7.9. Further re view of serum creatinine shows the following; 03/08/2018 creatinine 3.1. Urine sodium and urine crea tinine of 03/17/2018, pending. Repeat urinalysis is pending. IMAGING DATA: 1. Renal ultrasound on 03/08/2018 showed no hydronephrosis, bilateral renal cortical cysts and gallb ladder mildly distended. 2. On 03/08/2018, cardiac echo showed an EF of 25%-30%. 3. On 03/15/2018, urinalysis shows specific gravity 1.020, protein is 100, no pigmented granular lita ts, RBC 4-6, WBC 0-3. ASSESSMENT AND PLAN: Acute kidney injury on top of his chronic renal failure - superimposed prerenal azotemia. The patient was initially noted to be hypotensive. In addition, empiric volume repletion did not improve his renal function and actually worsening. The possibility of decreased renal perfu marybeth from an underlying congestive heart failure. Please note his EF is markedly decreased. It is also possible that this patient may have developed an acute tubular necrosis due to the persist ent hypotension and possible sepsis. For the moment, agree with gentle volume repletion with this pa tient. He is currently on salt poor albumin and on dopamine support. There is no indication at the present time for any acute dialytic intervention. I did discuss the possibility of dialysis with the patient's . For the moment, continue current salt poor albumin and gentle volume repletion. Continue dopamine cross pport for hypotension. We will be reviewing another urine sediment with this patient to see if he may have developed overt a cute tubular necrosis. Urine chemistries are currently pending. Review of the renal ultrasound shows no obstruction. Thank you for the consult. We will continue to follow.
[2018-03-18 04:41] LABS: Anion Gap 19 mmol/L (10-20); BUN (Urea Nitrogen) 69 mg/dL (8.4-25.7); Calc. Creatinine Clearance 12 mL/min (70-130); Calcium 8.2 mg/dL (7.8-10.44); Carbon Dioxide 13 mmol/L (23-31); Chloride 112 mmol/L (98-107); Estimated GFR-MDRD 8; Glucose 150 mg/dL (83-110); Iron 14 ug/dL (65-175); Iron Binding Capacity, Total 124 mcg/dL (261-462); Potassium 5.4 mmol/L (3.5-5.1); Sodium 139 mmol/L (136-145)
[2018-03-18] MEDS: Albumin 25% 25 GM/100 ML BOT IVPB SCH ×3 (05:39→18:14)
--- NOTE | 2018-03-18 09:24 | PRG ---
DATE OF SERVICE: 03/18/2018 RENAL MEDICINE SUBJECTIVE: Mr. Sauer is an 82-year-old white male, which was seen by the Renal Service for his acut e kidney injury. He was initially admitted for generalized weakness and abdominal pain. He was foun d to have some nephrolithiasis and ? of mild hydronephrosis. However, subsequent reevaluation showed no hydronephrosis. We are now following this patient for his acute kidney injury. With his history of hemodynamic instability, he was felt to have developed acute tubular necrosis. His renal functio n was improving in spite of volume repletion. I did review the repeat urinalysis yesterday and showe d pigmented granular casts suggestive of ATN. No improvement in renal function has been noted in the last 24 hours. PHYSICAL EXAMINATION: GENERAL: The patient is awake but confused. VITAL SIGNS: Blood pressure is 117/68, heart rate 91, respiratory rate 19, temperature 97.1, and pul se ox 95%. GENERAL: The patient is awake, but confused, not in distress, obese. SKIN: Adequate turgor. HEENT: Pinkish conjunctivae. Anicteric sclerae. NECK: No neck mass, no carotid bruits, no JVD. CHEST: No deformities. LUNGS: Decreased breath sounds. HEART: Normal sinus rhythm. No murmurs, no gallops, no rubs. ABDOMEN: Globular, soft, nontender, no masses. EXTREMITIES: Trace edema. MEDICATIONS: Medications of 03/18/2018 was reviewed. LABORATORY DATA: Laboratories of 03/17/2018; white count 8.7, hemoglobin 8.1. On 03/18/2018, sodium 139, potassium 5.4, chloride 112, carbon dioxide 13, BUN 69, creatinine 6.39, g lucose 150. Urine 14, ferritin 1112. ASSESSMENT AND PLAN: 1. Acute kidney injury - I did review the repeat urinalysis and it showed pigmented granular casts s uggesting superimposed acute tubular necrosis. Renal function has been worsening. In addition, his urine output is markedly decreased. My bias is to initiate hemodialysis. The family will rediscuss it among themselves. I left my cell phone number, they will call me for a decision. 2. For the moment, continue supportive care. 3. Mild hyperkalemia - we will continue to observe. 4. Metabolic acidosis - most likely related to his acute kidney injury. Overall, prognosis remains guarded.
--- NOTE | 2018-03-18 10:08 | PRG ---
DATE OF SERVICE: 03/18/2018 HISTORY: Mr. Sauer looks less comfortable today. PHYSICAL EXAMINATION: VITAL SIGNS: Blood pressure 117/68, pulse 90. LUNGS: Clear. CARDIAC: Normal S1, S2. ABDOMEN: Looked like ascites. EXTREMITIES: There is increasing edema. The weight is up to 213 pounds. He was 205 a couple of days ago. Put in a positive 2.6 liters yeste rday and 3 liters the day before. ASSESSMENT: 1. Volume overload. 2. Coronary artery disease. 3. Congestive heart failure with volume overload. PLAN: 1. Stop dopamine. There was no improvement in the urinary output. 2. Reduce fluid. 3. He will need dialysis soon to remove fluid.
[2018-03-18] MEDS ORDERED: Iothalamate Meglumine 60% 50 ML VIAL FS ONE (11:42)
[2018-03-18] MEDS ORDERED: Fentanyl 100 MCG/2 ML VIAL ONE (12:01)
[2018-03-18] MEDS: Calcium Carbonate 500 MG TAB PO SCH ×2 (12:39→17:52)
[2018-03-18] MEDS: Aspirin 81 mg Enteric Coated Tablet PO SCH (12:39)
[2018-03-18] MEDS: Famotidine 20 MG TAB PO SCH ×2 (12:41→22:07)
--- NOTE | 2018-03-18 13:04 | PRG ---
DATE OF SERVICE: 03/18/2018 SUBJECTIVE: The patient has been confused overnight with some difficulty with memory. He does have lucid intervals, but otherwise is not complaining of any pain, flank pain, chest pain, shortness of b reath, or any other worsening symptoms. His creatinine continues to worsen and Dr. Stewart has seen him and is considering a dialytic intervention. Both Dr. Loera and Dr. Amezcua are felt that he probably i s not going to significantly improve in the near future and that his blood pressure is probably the b est is going to be at the current time. I discussed with the already about placement of uretera l stent with the associated known high risks of anesthesia and intervention versus the potential bene fits of having a stent in if there is return of kidney function. PHYSICAL EXAMINATION: VITAL SIGNS: Temperature 97.1, pulse 91, respirations 19, blood pressure 117/68, and saturation 92% on room air. GENERAL: No apparent distress, somnolent somewhat communicative, but does not answer questions compl etely appropriately. CARDIOVASCULAR: Irregularly irregular, normal rate. Symmetric pulses. CHEST: No increased work of breathing, bibasilar crackles. ABDOMEN: Protuberant, soft, nontender, nondistended with positive bowel sounds. GENITOURINARY: Rangel catheter in place with scant mercedes colored urine. EXTREMITIES: 2+ edema. No clubbing or cyanosis. LABORATORY DATA: The full set of labs in the [employer] system, which I have reviewed. Of note, the p atient's hemoglobin is 8.1 with a white count of 8.7, creatinine is now 6.39 with potassium of 5.4. Urine and blood cultures are all negative at 48 hours. ASSESSMENT AND PLAN: An 82-year-old white male with acute tubular necrosis and acute renal failure, likely is going to require dialysis secondary to volume overload. He has no hydronephrosis and his r enal failure is not likely obstructive at this time; however, the patient did have presumed sepsis pr eviously and currently is extremely oliguric if he does have any return of renal function, it is very important that both of his kidneys are unobstructed and allowing to drain freely. Given that this s cenario, I discussed going for ureteral stent at this time given that his blood pressure is optimized as good as can be. Alternatively, we discussed the options with the of waiting and seeing how he does without ureteral stenting, but she is concerned as [facility] about the potential for the persistent obstruction on the left kidney, which may impair a return of renal function. As such, we have agreed to move forward with a cystoscopy with left ureteral stent placement. There is a sig nificant risk of anesthesia, but we are using the lowest form of anesthesia possible with just TIVA a t lowest dose possible for a minimal requirement of this sedation. We will then plan for stent place ment if there is any difficulty with stent placement or the stent is not passing, I have told the wif e, I would not plan for a prolonged stay in the OR and we will probably abort the procedure and wake him up to avoid the complications of prolonged sedatives. I have also discussed DNR with the benny wei she states that she would be okay with chemical intervention or electric cardioversion, but agreed that she would not want chest compressions or prolonged intubation. We will plan to go to the operat ing room for cystoscopy and left ureteral stent placement and the patient will return back to the ICU afterwards for continued medical care.
[2018-03-18] MEDS ORDERED: Promethazine HCl 25 MG/ML VIAL IM PRN (13:19)
[2018-03-18] MEDS ORDERED: Ondansetron HCl/PF 4 MG/2 ML Vial IVP PRN (13:19)
[2018-03-18] MEDS ORDERED: Promethazine HCl 25 MG/ML VIAL SLOW IVP PRN (13:19)
--- NOTE | 2018-03-18 13:36 | RAD ---
RETROGRADE IVP: INDICATIONS: Ureteral stent placement. TECHNIQUE: A single image is obtained. FINDINGS: This single image shows a double-pigtail left ureteral stent. There is no opacification of the colle cting structures presented. POS: [facility]
[2018-03-18] MEDS ORDERED: PROPOFOL 200 MG/20 ML VIAL ONE (13:46)
[2018-03-18] MEDS: cefTRIAXone\\ROCEPHIN 2 GM in Sodium Chloride 0.9% 100 ML IVPB SCH (14:11)
[2018-03-18] MEDS: Sodium Chloride 0.9% 1,000 ML IV SCH ×2 (14:15→22:09)
[2018-03-18 15:06] LABS: Vancomycin, Trough 25.2 ug/mL
--- NOTE | 2018-03-18 15:32 | PDOC.PN ---
- Subjective Encounter Start Date: 03/18/18 Encounter Start Time: 15:31 Subjective: patient seen after ureteral stent placement. denies any SOB, chest pain -: nausea or vomiting patient seen and examined after left ureteral stent placement - Objective Resuscitation Status: Resuscitation Status DNR:Do Not Resuscitate MAR Reviewed: Yes Vital Signs & Weight: Vital Signs (12 hours) Temp Pulse Resp BP Pulse Ox 03/18/18 14:15 86 16 118/61 96 03/18/18 13:56 97.7 F 92 16 105/59 L 97 03/18/18 08:00 97.1 F L 91 19 92 L 03/18/18 07:45 97.1 F L 91 19 117/68 95 03/18/18 03:48 97.6 F 87 17 106/68 96 Weight Weight 213 lb 9 oz I&O: 03/17/18 03/18/18 03/19/18 06:59 06:59 06:59 Intake Total 3144.5 2786 Output Total 135 105 Balance 3009.5 2681 Result Diagrams: 03/17/18 04:53 03/18/18 03:41 Additional Labs: Accuchecks 03/18/18 03/18/18 03/17/18 10:49 05:49 20:12 POC Glucose 164 H 156 H 169 H 03/17/18 17:33 POC Glucose 164 H Radiology Reviewed by me: Yes Phys Exam - Physical Examination Constitutional: NAD dry MM Neck: no nodes, no JVD Respiratory: no wheezing, no rales, no rhonchi Cardiovascular: RRR, no significant murmur, no rub Gastrointestinal: soft, non-tender, no distention Musculoskeletal: pulses present Skin: no rash Dx/Plan (1) ELVA (acute kidney injury) Code(s): N17.9 - ACUTE KIDNEY FAILURE, UNSPECIFIED Status: Acute Comment: Worsened renal function, likely multifactorial, no hydronephrosis documented on renal sono but urine output minimal Cr increased. likely will need HD short term. (2) ATN (acute tubular necrosis) Code(s): N17.0 - ACUTE KIDNEY FAILURE WITH TUBULAR NECROSIS Status: Acute Comment: Suspect due to hypoperfusion injury, d/c dopamine on 03/18/18 , avoid nephrotoxic meds and limit contrast exposure, renal dosing of medications, consult Nephrology, ? need for HD, likely will need this temporarily at least. family to discuss with neph (3) Left ureteral calculus Code(s): N20.1 - CALCULUS OF URETER Status: Acute Comment: no hydronephrosis noted on renal sono, stent placement on 03/18/18 in left ureter (4) Metabolic acidosis Code(s): E87.2 - ACIDOSIS Status: Acute Comment: Secondary to ELVA, stable. possible need for HD - Plan cont current plan of care, continue antibiotics * . -IV rocephin/vanc to continue urine cultures and blood cultures so far negative to date. -consider need for HD family to discuss, although in light of comorbidities, likely not beneficial in intermediate monitor renal function - s/p left ureteral stent placement today -d/c dopamine 03/18/18 due to no improvement in urine output will need HD soon as well to remove fluid
[2018-03-18] MEDS: Vancomycin HCl 750 MG in Sodium Chloride 0.9% 250 ML 250 ML IVPB SCH (16:35)
[2018-03-18 17:31] LABS: HBSAg Index 0.78 S/CO (0-0.99); Hep B Surf Ag Non-Reactive S/CO (NonReactive)
--- NOTE | 2018-03-18 19:23 | OP ---
DATE OF PROCEDURE: 03/18/2018 SERVICE: Urology. SURGEON: Oz Brown M.D. PREOPERATIVE DIAGNOSES: Left ureteral stone with acute renal failure and sepsis. POSTOPERATIVE DIAGNOSES: Left ureteral stone with acute renal failure and sepsis. PROCEDURES PERFORMED: Cystoscopy with left ureteral stent placement. INDICATIONS FOR PROCEDURE: Mr. Sauer is an 82-year-old white male with significant comorbidities inc luding a near complete renal failure at this current time with congestive heart failure, sepsis and a left ureteral stone. He is not producing much urine, presumably secondary to prerenal causes and in trinsic renal causes secondary to ATN and heart failure. That said, he does have an obstructing left stone and we had discussed placement of ureteral stent to optimize recovery of renal function. Risk s are significant including anesthetic risks. We have discussed this with the patient and his a nd they have agreed to proceed forward. DESCRIPTION OF PROCEDURE: After identification of armband and verification of consent, the patient w as brought back to the operating room. He underwent total intravenous anesthesia with very light sed ation. He was then placed in the dorsal lithotomy position and prepped and draped in usual sterile f ashion. After appropriate timeout, a lubricated 22 Czech rigid cystoscope was placed gently through the urethra and into the bladder. The prostate is mildly hypertrophic and the bladder showed some d ebris, but no obvious lesions, stones or tumors. Attention was turned to the left ureteral orifice. There was no efflux coming out of either ureter. A 0.035 sensor wire was advanced through the left ureteral orifice to the level of the stone. Some manipulation was necessary, but the wire did pass b y the stone and up into the renal pelvis. The stone was radiolucent, but it could be felt with the w mai. Once the wire was in place, a 6 x 26 double-J stent was advanced over the sensor wire to the le kandis of the renal pelvis. The wire was then removed leaving a good curl in the renal pelvis and good curl in the bladder. The bladder was left full and the cystoscope removed. A 16 Czech Rangel cathet er was then replaced back into the patient's bladder. He was then awakened and taken to PACU for rec overy in stable condition. COMPLICATIONS: None. ESTIMATED BLOOD LOSS: Minimal. RETAINED TUBES AND DRAINS: A 6 x 26 double-J stent on the left and a 16-Czech Rangel catheter to gra vity drainage. SPECIMENS: None. DISPOSITION: The patient will be admitted back to the medicine service on telemetry. He will contin ue medical management with Cardiology, Pulmonary Critical Care Medicine and Nephrology and myself.
--- NOTE | 2018-03-18 21:29 | OP ---
PREOPERATIVE DIAGNOSES: Acute renal failure, in need of acute dialysis, fluid overload; hyperkalemia ; diabetes; hypertension; cardiomyopathy. POSTOPERATIVE DIAGNOSES: Acute renal failure, in need of acute dialysis, fluid overload; hyperkalemi a; diabetes; hypertension; cardiomyopathy. PROCEDURE: Right femoral vein Trialysis catheter. SURGEON: Dr. Jair Connelly. ANESTHESIA: A 1% Xylocaine. PROCEDURE IN DETAIL: At the patient's bedside, his right groin had previously been clipped of hair a nd it was prepared with ChloraPrep, draped in routine fashion. A 1% Xylocaine infiltrated into skin and subcutaneous tissue about the operative site. Trocar catheter cannulated the femoral vein with g ood return of venous blood. J-wire threaded. Trocar catheter removed. Seldinger technique used to place a Trialysis catheter securing a 3-0 nylon suture x2. Sterile dressing applied. Each port aspi rated blood and flushed with heparinized saline solution. Patient tolerated the procedure well.
--- NOTE | 2018-03-18 21:52 | HP ---
HISTORY OF PRESENT ILLNESS: An 82-year-old male patient, lives in [place]. He has previously obta ined all of his medical and surgical care in [place]. The patient was in [place], was having some urological concerns and I am told that in [place], they secured urological consultation and the altaf aguilar came here for care. The patient has history of coronary artery disease, known congestive heart failure, 20%-25% cardiac ejection fraction by current echocardiogram this hospitalization. In early 1999, he had a myocardial infarction and coronary artery bypass grafting in 5 vessels. In the last 2 months, he has been hospitalized at [facility] for myocardial infarction requiring cat heterization and stent placement. The patient is unaware that he has had chronic kidney disease, alt binh it is likely that he has had. He has a long history of diabetes and hypertension, and has been told he has longstanding cardiomyopathy from his coronary events. He is a DNR. The patient has deteriorating renal function. Dr. Stewart has seen him and asked me to place a temporary dialysis catheter. He has a left hand IV, a right antecubital IV despite his diagnosis of acute kid rocio injury and renal failure. White count 8.7, hemoglobin 8.1, sodium 139, potassium 5.4, creatinine 6.39, BUN 69, GFR 8, glucose is 169 to 156, CO2 of 13. ALLERGIES: None. TOBACCO: None for 30 years. ALCOHOL: None. MEDICATIONS: Brilinta, Zofran, glyburide, metformin b.i.d., carvedilol 25 b.i.d., aspirin 81 mg crystal y, Tylenol p.r.n., Entresto b.i.d., Lasix 40 mg daily, Crestor 10 mg at bedtime. PAST SURGICAL HISTORY: Coronary artery bypass grafting in the mid ; carotid endarterectomy, rig ht, 3-4 weeks ago. Never has had a colonoscopy. Negative history of colon cancer. Tonsillectomy. PAST MEDICAL HISTORY: Coronary artery disease as stated above; recent stent placement after myocardi al infarction; cardiomyopathy with compromised echocardiogram with low ejection fraction, seen by Dr. Amezcua this hospitalization; history of TIA few weeks ago prior to his endarterectomy; hypertension; hyperlipidemia; diabetes mellitus type 2; overweight, 5 feet 10 inches, BMI 30. PHYSICAL EXAMINATION: VITAL SIGNS: 5 feet 10 inches, 313 pounds, BMI 30, temperature 96.2, pulse 99, blood pressure 90/55. GENERAL: The patient has overall edema, anasarca. LUNGS: Rhonchi at base. CARDIAC: Regular rate and rhythm. ABDOMEN: Soft, protuberant, obese, edematous. EXTREMITIES: Edematous. ASSESSMENT AND PLAN: 1. Acute renal failure probably superimposed on chronic. Suspect end-stage renal disease. I have p ersonally removed his right antecubital IV and informed the family not to place any more IVs. We roxana l have all blood draws from his central line. We will place a trialysis catheter and more than likel y about next week, he will need a cuffed tunneled dialysis catheter. We will discuss with Dr. Stewart. Perhaps could perform that on Friday. 2. Coronary artery disease with cardiomyopathy, recent myocardial infarction with stent a few weeks ago. Has been on Brilinta, held at this point. I will continue to hold Brilinta in case dialysis ac cess is necessary in the next 48 hours. 3. Diabetes mellitus. 4. Hypertension. 5. Status post carotid endarterectomy recently.
[2018-03-18] MEDS: Rosuvastatin 10 MG TAB PO SCH (22:07)
[2018-03-19 05:08] LABS: Anion Gap 23 mmol/L (10-20); BUN (Urea Nitrogen) 71 mg/dL (8.4-25.7); Calc. Creatinine Clearance 13 mL/min (70-130); Calcium 8.5 mg/dL (7.8-10.44); Carbon Dioxide 14 mmol/L (23-31); Chloride 111 mmol/L (98-107); Estimated GFR-MDRD 9; Glucose 110 mg/dL (83-110); Potassium 5.1 mmol/L (3.5-5.1); Sodium 143 mmol/L (136-145)
[2018-03-19 05:11] LABS: Band 1 % (5-11); Eosinophils 1 % (0-10); Lymphocytes 14 % (21-51); MDiff Complete? YES; Mean Corpuscular Hemoglobin 28.7 pg (27.0-31.0); Mean Corpuscular Volume 86.9 fl (80.0-94.0); Mean Platelet Volume 8.7 fL (7.4-10.4); Monocytes 1 % (0-10); Neutrophil 83 % (42-75); PLT Morphology Comment Appears Adequate; Platelet Count 180 thou/uL (130-400); Red Blood Cell (RBC) Count 2.78 mill/uL (4.70-6.10); White Blood Cell (WBC) Count 6.9 thou/uL (4.8-10.8)
--- NOTE | 2018-03-19 10:35 | ULT ---
BILATERAL UPPER EXTREMITY VEIN MAPPING: HISTORY: Evaluation for dialysis access. FINDINGS: RIGHT CEPHALIC VEIN: PROXIMAL HUMERUS: 2.9 mm MID HUMERUS: 2.8 mm DISTAL HUMERUS: 2.7 mm ELBOW: 3 mm PROXIMAL FOREARM: 2 mm MID FOREARM: 1.7 mm DISTAL FOREARM: 1.4 mm RIGHT BASILIC VEIN: PROXIMAL HUMERUS: 1.7 mm MID HUMERUS: 2.4 mm DISTAL HUMERUS: 1.2 mm ELBOW: 1.3 mm PROXIMAL FOREARM: 1.4 mm MID FOREARM: 1.3 mm DISTAL FOREARM: 1.1 mm LEFT CEPHALIC VEIN: PROXIMAL HUMERUS: 3.2 mm MID HUMERUS: 3.1 mm DISTAL HUMERUS: 3.9 mm (clotted) ELBOW: 4.6 mm (clotted) PROXIMAL FOREARM: 2.1 mm MID FOREARM: 2.2 mm DISTAL FOREARM: 2.2 mm LEFT BASILIC VEIN: PROXIMAL HUMERUS: 3.6 mm MID HUMERUS: 2.1 mm DISTAL HUMERUS: 1.6 mm ELBOW: 2.2 mm PROXIMAL FOREARM: 1.2 mm MID FOREARM: 1.4 mm DISTAL FOREARM: 1.1 mm RIGHT BRACHIAL ARTERY: 2.8 mm RIGHT RADIAL ARTERY: 1.7 mm RIGHT ULNAR ARTERY: 1.7 mm LEFT BRACHIAL ARTERY: 2.7 mm LEFT RADIAL ARTERY: 1.5 mm LEFT ULNAR ARTERY: 1.4 mm IMPRESSION: Dialysis measurements as discussed above. The more distal cephalic vein and the distal humerus and e lbow region show evidence of thrombus. POS: [facility]
--- NOTE | 2018-03-19 12:03 | PRG ---
DATE OF SERVICE: 03/19/2018 SUBJECTIVE: Mr. Sauer is an 82-year-old white man seen by the Renal Service for his acute kidney inj ury secondary to acute tubular necrosis. Hemodialysis was initiated yesterday. He received 1 hour d ialysis yesterday and tolerated this. He again is receiving a 2-hour hemodialysis today. He is tole rating the said treatment and fluid removal as tolerated. No other complaints. No acute events note d with this patient. Please note that the patient was seen by Dr. Brown yesterday and he underwent a cystoscopy with left ureteral stent placement for renal stone. The patient denies any chest pain or shortness of breath. OBJECTIVE: VITAL SIGNS: Blood pressure 116/55, heart rate 89, respiratory rate 14, temperature 96.9, pulse ox 9 6%. GENERAL: Noted to be awake, confused, not in distress. SKIN: Adequate turgor. HEENT: Slightly pale conjunctivae, anicteric sclerae. NECK: No neck mass, no carotid bruits, no JVD. CHEST: No deformities. LUNGS: Decreased breath sounds. HEART: Normal sinus rhythm. No murmur, no gallops, no rubs. ABDOMEN: Globular, soft, nontender, no masses. EXTREMITIES: Positive for edema. MEDICATIONS: Medications of 03/19/2018 was reviewed. LABORATORY DATA: Laboratories of 03/19/2018, white count 6.9, hemoglobin 8. Sodium 143, potassium 5 .1, chloride 111, carbon dioxide 14, BUN 71, creatinine 6.16, calcium 8.5. ASSESSMENT AND PLAN: 1. Acute kidney injury secondary to acute tubular necrosis. Continue supportive care. Due to the w orsening renal dysfunction, hemodialysis has been initiated. My plan is to do another 3-hour hemodia lysis and on Friday do a full 4-time hemodialysis. After the said treatments, he will be placed on 3 times a week dialysis. Monitor renal function for possible renal recovery 2. Nephrolithiasis -- status post cystoscopy with ureteral stent placement. 3. Anemia, p.r.n. blood transfusion. Agree with current management.
[2018-03-19] MEDS: Calcium Carbonate 500 MG TAB PO SCH ×2 (12:13→17:33)
[2018-03-19] MEDS: Aspirin 81 mg Enteric Coated Tablet PO SCH (12:14)
--- NOTE | 2018-03-19 13:54 | PDOC.PN ---
- Subjective Encounter Start Date: 03/19/18 Encounter Start Time: 13:52 patient seen in dialysis. no overnight events. slightly fatigued. no N/V/ chest pain SOB, fevers or chills - Objective Resuscitation Status: Resuscitation Status DNR:Do Not Resuscitate MAR Reviewed: Yes Vital Signs & Weight: Vital Signs (12 hours) Temp Pulse Resp BP Pulse Ox 03/19/18 11:55 94 19 112/52 L 95 03/19/18 07:57 96.9 F L 89 14 116/55 L 96 03/19/18 07:40 96.9 F L 88 15 96 03/19/18 03:52 97.6 F 88 17 121/68 96 Weight Weight 214 lb 6 oz I&O: 03/18/18 03/19/18 03/20/18 06:59 06:59 06:59 Intake Total 2786 920 Output Total 105 1150 Balance 2681 -230 Result Diagrams: 03/19/18 04:47 03/19/18 04:47 Additional Labs: Accuchecks 03/19/18 03/19/18 03/18/18 12:33 05:51 20:36 POC Glucose 111 H 114 H 156 H 03/18/18 16:53 POC Glucose 159 H Phys Exam - Physical Examination Constitutional: NAD HEENT: moist MMs, sclera anicteric Neck: no nodes, no JVD, supple Respiratory: no wheezing, no rhonchi Cardiovascular: RRR, no significant murmur, no rub Gastrointestinal: soft, non-tender, no distention Dx/Plan (1) ELVA (acute kidney injury) Code(s): N17.9 - ACUTE KIDNEY FAILURE, UNSPECIFIED Status: Acute Comment: Worsened renal function, likely multifactorial, no hydronephrosis documented on renal sono but urine output minimal Cr stable now. temp dialysis catheter placed on 03/18/18. HD today on 03/19/18 to see if can jump start kidneys as this is likely acute kidney injury (2) ATN (acute tubular necrosis) Code(s): N17.0 - ACUTE KIDNEY FAILURE WITH TUBULAR NECROSIS Status: Acute Comment: Suspect due to hypoperfusion injury, d/c dopamine on 03/18/18 , avoid nephrotoxic meds and limit contrast exposure, renal dosing of medications, consult Nephrology short term dialysis started 03/19/18 (3) Left ureteral calculus Code(s): N20.1 - CALCULUS OF URETER Status: Acute Comment: no hydronephrosis noted on renal sono, stent placement on 03/18/18 in left ureter Urine cultures, blood cultures all negative. will d/c rocephin and vanc. discontinued on 03/19/18 (4) Metabolic acidosis Code(s): E87.2 - ACIDOSIS Status: Acute Comment: Secondary to ELVA, stable. started HD on 03/19/18 - Plan cont current plan of care * . short term HD initiated to see if UOP and renal function can improve -d/c abx today given all cx negative. may also limit renal damage as well. -daily chemistries. -dispo: TBD, monitoring return of renal function after HD
[2018-03-19] MEDS ORDERED: Vancomycin HCl 500 MG in Sodium Chloride 0.9% 100 ML IVPB SCH (14:00)
--- NOTE | 2018-03-19 19:08 | PRG ---
DATE OF SERVICE: 03/19/2018 HISTORY: Mr. Sauer looks more alert today. He has undergone dialysis. I was told that he had 2 lit ers out. PHYSICAL EXAMINATION: VITAL SIGNS: His blood pressure is 126 systolic, which is the best it has been in a while, pulse 88. LUNGS: Clear. CARDIAC: Normal S1, S2. ABDOMEN: Soft, nontender. EXTREMITIES: There is moderate edema. ASSESSMENT: 1. Acute renal failure, undergoing hemodialysis. 2. Fortunately he is making some urine. 3. Congestive heart failure, systolic, chronic. 4. Coronary artery disease. 5. Hematuria, intermittent. PLAN: 1. He is on aspirin. 2. He is on low dose of normal saline, not eating or drinking much. 3. He is not on Brilinta now due to hematuria. 4. Not on carvedilol yet or Entresto due to hypotension and renal failure, carvedilol can be restart ed as blood pressure allows. We will start a low dose tomorrow.
[2018-03-19] MEDS: Rosuvastatin 10 MG TAB PO SCH (20:51)
[2018-03-19] MEDS: Famotidine 20 MG TAB PO SCH (20:51)
[2018-03-19] MEDS: Sodium Chloride 0.9% 1,000 ML IV SCH ×2 (21:41→22:30)
[2018-03-19] MEDS: Acetaminophen 500 MG TAB PO PRN (21:53)
[2018-03-20 04:44] LABS: Anion Gap 19 mmol/L (10-20); BUN (Urea Nitrogen) 59 mg/dL (8.4-25.7); Calc. Creatinine Clearance 16 mL/min (70-130); Calcium 8.7 mg/dL (7.8-10.44); Carbon Dioxide 16 mmol/L (23-31); Chloride 110 mmol/L (98-107); Estimated GFR-MDRD 11; Glucose 129 mg/dL (83-110); Potassium 4.3 mmol/L (3.5-5.1); Sodium 141 mmol/L (136-145)
[2018-03-20 05:02] LABS: Eosinophils 2 % (0-10); Hemoglobin 8.4 g/dL (14.0-18.0); Lymphocytes 9 % (21-51); MDiff Complete? YES; Mean Corpuscular HGB CONC 32.8 g/dL (32.0-36.0); Mean Corpuscular Hemoglobin 28.4 pg (27.0-31.0); Mean Corpuscular Volume 86.7 fl (80.0-94.0); Mean Platelet Volume 8.7 fL (7.4-10.4); Monocytes 3 % (0-10); Neutrophil 86 % (42-75); PLT Morphology Comment Appears Adequate; Platelet Count 182 thou/uL (130-400); RBC Distribution Width 16.9 % (11.5-14.5); RBC Morphology Normal; Red Blood Cell (RBC) Count 2.96 mill/uL (4.70-6.10); White Blood Cell (WBC) Count 6.5 thou/uL (4.8-10.8)
--- NOTE | 2018-03-20 10:05 | PRG ---
DATE OF SERVICE: 03/20/2018 SUBJECTIVE: Mr. Sauer is an 82-year-old white man seen by the Renal Service for an acute kidney inju ry secondary to acute tubular necrosis. Due to the worsening renal dysfunction and volume overload t he patient has been initiated on dialysis. I am currently at the bedside supervising his dialysis. He has no complaints of chest pain or shortness of breath. PHYSICAL EXAMINATION: VITAL SIGNS: Blood pressure 118/42, heart rate 88, respiratory rate 22, temperature 98.3, pulse ox 1 00%. GENERAL: Awake, but still confused, not in overt distress. SKIN: Adequate turgor. HEENT: Slightly pale conjunctivae, anicteric sclerae. NECK: No neck mass, no carotid bruits, no JVD. CHEST: No deformities. LUNGS: Clear breath sounds, no wheezing, no crackles. HEART: Normal sinus rhythm. No murmur, no gallops, no rubs. ABDOMEN: Globular, soft, nontender, no masses. EXTREMITIES: Trace edema. MEDICATIONS: 03/20/2018 - Reviewed. LABORATORIES: 03/20/2018 - White count 6.5, hemoglobin 8.4, sodium 141, potassium 4.3, chloride 110, carbon dioxide 16, BUN 59, creatinine 5.11, glucose 129, calcium 8.7. ASSESSMENT AND PLAN: Acute kidney injury - secondary to a presumed ischemic acute tubular necrosis. Continuing hemodialysis regimen. We are planning to do a 2-3 hour hemodialysis treatment today. Fl uid removal again as tolerated. No evidence of renal recovery at the present time. The plan is to p lace a cuffed hemodialysis catheter this coming Friday. Overall, agree with current management. Recheck base met and CBC in a.m.
[2018-03-20] MEDS: Carvedilol 3.125 MG TAB PO SCH ×2 (12:16→17:58)
[2018-03-20] MEDS: Acetaminophen 500 MG TAB PO PRN (12:16)
[2018-03-20] MEDS: Aspirin 81 mg Enteric Coated Tablet PO SCH (12:16)
[2018-03-20] MEDS: Calcium Carbonate 500 MG TAB PO SCH ×2 (12:16→17:58)
--- NOTE | 2018-03-20 15:04 | PDOC.PN ---
- Subjective Encounter Start Date: 03/20/18 Encounter Start Time: 15:02 Subjective: better, less sob - Objective Resuscitation Status: Resuscitation Status DNR:Do Not Resuscitate MAR Reviewed: Yes Vital Signs & Weight: Vital Signs (12 hours) Temp Pulse Resp BP Pulse Ox 03/20/18 11:50 97.3 F L 99 20 106/80 99 03/20/18 07:52 98.3 F 88 22 H 100 03/20/18 07:00 98.3 F 88 22 H 118/42 L 100 03/20/18 04:00 98.4 F 88 20 139/80 96 Weight Weight 218 lb 9.6 oz I&O: 03/19/18 03/20/18 03/21/18 06:59 06:59 06:59 Intake Total 920 1262 Output Total 1150 2225 Balance -230 -963 Result Diagrams: 03/20/18 03:47 03/20/18 03:47 Additional Labs: Accuchecks 03/20/18 03/20/18 03/19/18 11:52 06:22 21:17 POC Glucose 120 H 139 H 119 H 03/19/18 17:20 POC Glucose 108 Phys Exam - Physical Examination Neck: no JVD basilar rales Cardiovascular: RRR, no significant murmur Gastrointestinal: soft, positive bowel sounds Musculoskeletal: edema present Dx/Plan (1) CAD (coronary artery disease) Code(s): I25.10 - ATHSCL HEART DISEASE OF [place] CORONARY ARTERY W/O ANG PCTRS Status: Acute Qualifiers: Coronary Disease-Associated Artery/Lesion type: [place] artery [place] vs. transplanted heart: [place] heart Associated angina: without angina Qualified Code(s): I25.10 - Atherosclerotic heart disease of [place] coronary artery without angina pectoris (2) Cardiomyopathy Code(s): I42.9 - CARDIOMYOPATHY, UNSPECIFIED Status: Chronic Qualifiers: Cardiomyopathy type: other Qualified Code(s): I42.8 - Other cardiomyopathies (3) ELVA (acute kidney injury) Code(s): N17.9 - ACUTE KIDNEY FAILURE, UNSPECIFIED Status: Acute Comment: Worsened renal function, likely multifactorial, no hydronephrosis documented on renal sono but urine output minimal Cr stable now. temp dialysis catheter placed on 03/18/18. HD today on 03/19/18 to see if can jump start kidneys as this is likely acute kidney injury (4) Elevated troponin I level Code(s): R74.8 - ABNORMAL LEVELS OF OTHER SERUM ENZYMES Status: Acute Comment: Likely demand ischemia in context of SIRS, ureteral calculus and hx of CAD, consult Cardiology, Lovenox given x 1 (5) Encephalopathy, metabolic Code(s): G93.41 - METABOLIC ENCEPHALOPATHY Status: Acute Comment: Persistent but improved, multifactorial, continue supportive mgmt (6) Left ureteral calculus Code(s): N20.1 - CALCULUS OF URETER Status: Acute Comment: no hydronephrosis noted on renal sono, stent placement on 03/18/18 in left ureter Urine cultures, blood cultures all negative. will d/c rocephin and vanc. discontinued on 03/19/18 (7) SIRS (systemic inflammatory response syndrome) Code(s): R65.10 - SIRS OF NON-INFECTIOUS ORIGIN W/O ACUTE ORGAN DYSFUNCTION Status: Resolved Comment: Blood/Ucx negative today, continue empiric IV abx given ureteral calculus, await final blood cx results (8) DM II (diabetes mellitus, type II), controlled Code(s): E11.9 - TYPE 2 DIABETES MELLITUS WITHOUT COMPLICATIONS Status: Chronic Qualifiers: Diabetes mellitus complication status: with kidney complications Comment: ISS, serial accuchecks (9) Normocytic anemia Code(s): D64.9 - ANEMIA, UNSPECIFIED Status: Chronic Comment: hematuria noted in Rangel catheter due to ureteral calculus, no other evidence of active loss, serial H/H - Plan cont HD per renal -: off entresto for hypotension- discuss institution with cardiology -: cont accu/ss/cont off glyburide/ metformin * .
--- NOTE | 2018-03-20 18:09 | PDOC.CTH ---
Cardiology Progress Note - Subjective He remains confused but better than on admission per 's report. He is tolerating dialysis well . - Objective Vital Signs Temp Pulse Resp BP Pulse Ox 03/20/18 16:00 97.3 F L 99 20 98 03/20/18 11:50 97.3 F L 99 20 106/80 99 03/20/18 08:18 93 L 03/20/18 07:52 98.3 F 88 22 H 100 03/20/18 07:00 98.3 F 88 22 H 118/42 L 100 Weight 218 lb 9.6 oz 03/19/18 03/20/18 03/21/18 06:59 06:59 06:59 Intake Total 920 1262 Output Total 1150 2225 Balance -230 -963 - Physical Examination General/Neuro: NAD Neck: no JVD present Lungs: unlabored respirations Heart: RRR Abdomen: NT/ND Extremities: other: (no edema) - Telemetry Telemetry Rhythm: NSR - Labs Result Diagrams: 03/20/18 03:47 03/20/18 03:47 Troponin/CKMB Troponin I 2.955 ng/mL (< 0.028) H* 03/15/18 18:33 - Assessment/Plan 1. Acute renal failure 2. Acute on chronic systolic heart failure 3. CAD 4. Hematuria PLAN: - Increased urinary output. - May transfer to floor. - No Brilinta due to hematuria. - On aspirin.
[2018-03-20] MEDS: Famotidine 20 MG TAB PO SCH (20:01)
[2018-03-20] MEDS: Rosuvastatin 10 MG TAB PO SCH (20:01)
[2018-03-21] MEDS: Sodium Chloride 0.9% 1,000 ML IV SCH (01:06)
[2018-03-21 08:11] LABS: #Eosinphils 0.3 thou/uL (0.0-0.7); #Lymphocytes 0.6 thou/uL (1.20-3.40); #Monocytes 0.8 thou/uL (0.11-0.59); #Neutrophils 5.4 thou/uL (1.40-6.50); %Eosinophils 4.2 % (0.0-10.0); %Lymphocytes 8.6 % (21.0-51.0); %Monocytes 11.3 % (0.0-10.0); Hemoglobin 8.6 g/dL (14.0-18.0); Mean Corpuscular HGB CONC 32.8 g/dL (32.0-36.0); Mean Corpuscular Hemoglobin 28.7 pg (27.0-31.0); Mean Corpuscular Volume 87.3 fl (80.0-94.0); Mean Platelet Volume 8.7 fL (7.4-10.4); Platelet Count 189 thou/uL (130-400); RBC Distribution Width 17.1 % (11.5-14.5); White Blood Cell (WBC) Count 7.2 thou/uL (4.8-10.8)
[2018-03-21] MEDS ORDERED: Heparin 1,000 UNITS/ML VIAL ONE (11:11)
--- NOTE | 2018-03-21 11:41 | PRG ---
DATE OF SERVICE: 03/21/2018 SUBJECTIVE: Mr. Sauer is an 82-year-old white male who was seen by the Renal Service for his acute k idney injury secondary to acute tubular necrosis. Hemodialysis has been initiated. He continues to be confused. However, this morning, he is less confused. He denies any chest pain or shortness of b reath. Fluid removal is being tolerated by the patient. No acute events noted last night. PHYSICAL EXAMINATION: VITAL SIGNS: Blood pressure is 135/83, heart rate 84, respiratory rate 18, temperature 97.9, pulse o ximetry 95%. GENERAL: Noted to be awake, alert, comfortable, not in distress. SKIN: Adequate turgor. HEENT: Slightly pale conjunctivae, anicteric sclerae. NECK: No neck mass, no carotid bruits, no JVD. CHEST: No deformities. LUNGS: Decreased breath sounds. HEART: Normal sinus rhythm. No murmur, no gallops, no rubs. ABDOMEN: Globular, soft, nontender, no masses. EXTREMITIES: Trace edema. MEDICATIONS: Of 03/21/2018 was reviewed. LABORATORY DATA: Of 03/21/2018, white count 7.2, hemoglobin 8.6, hematocrit 26.2. Sodium 141, potas sium 4.3, chloride 110, carbon dioxide 16, BUN 59, creatinine 5.11, calcium 8.7. ASSESSMENT AND PLAN: 1. Acute kidney injury - secondary to ischemic acute tubular necrosis. Continue supportive dialysis , tolerating said treatment. Fluid removal only as tolerated. I reviewed the numbers and there is n o evidence of renal recovery at the present time. 2. Anemia. Continue to observe. P.r.n. blood transfusion. 3. Volume overload - clinically improved with fluid removal with dialysis. Recheck base met and CB C in a.m.
[2018-03-21] MEDS: Carvedilol 3.125 MG TAB PO SCH (12:52)
[2018-03-21] MEDS: Calcium Carbonate 500 MG TAB PO SCH (12:53)
[2018-03-21] MEDS: Aspirin 81 mg Enteric Coated Tablet PO SCH (12:54)
[2018-03-21 13:00] VITALS: BP 90/37; TEMP 97.8
--- NOTE | 2018-03-21 13:08 | DS ---
DATE OF ADMISSION: 03/15/2018 DATE OF : 03/21/2018 PRIMARY CARE PROVIDER: Bobby Sher M.D. Body is being released to home. Patient has an authorization for the body to be used for res earch medical purposes and we were in the process of obtaining directions for that. FINAL DIAGNOSES: Cardiopulmonary arrest, acute renal failure, obstructing renal calculus septic shoc k. 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 HOSPITAL COURSE: Patient was admitted to the [facility] through [facility] after transfer from [place] with abdominal pain and weakness. His initial blood pressure on a dmission was 82/42 with a pulse of 97. Cardiorespiratory exam was normal. Abdomen was benign. He h ad pitting edema. His creatinine was 3.8, sodium 137, potassium 4.5, BUN 50. Troponins are 0.227. White cell count elevated at 10.38, hemoglobin 9.3, platelet count 2002. CT of the abdomen showed a left ureteral calculus with moderate left hydronephrosis and marked perinephric stranding. Initial d iagnosis was septic shock, acute renal failure, obstructing left ureteral calculus. Patient also has a history of diabetes mellitus, type 2; coronary artery disease. Blood cultures were done, which pr gabriel to be negative. The patient was treated with broad-spectrum antibiotics. Multiple consultation s were obtained including Dr. Oz Brown, 03/15/2018; Dr. Candace Amezcua, Cardiology, 03/16/2018; Alex Mendez, Pulmonology, 03/16/2018; Dr. Carlos Enrique Stewart, 03/17/2018. The patient was treated agg ressively with IV antibiotics. His Accu-Cheks were monitored. As mentioned before, his cultures wer e negative. He required hemodialysis. His kidney function progressed rapidly to end-stage renal dis ease with creatinine of 6.39 on 03/18/2018. He became acidotic, hyperkalemic, dialysis was institute d. The patient's blood pressure was initially low, it improved with initial improvement in his fluid status. He was undergoing daily hemodialysis and was improving up until this morning. Other studie s done, echocardiogram, ejection fraction 25%-30% on 03/18/2018. He has cystoscopy with left uretera l stent placement on 03/18/2018. He had right femoral Trialysis catheter. The patient was being set up for chronic hemodialysis and a permanent access site. He went to dialysis this morning. He was alert and conversant. When he came back from dialysis, his blood pressure was mildly decreased. He had had decrease in his blood pressure during hemodialysis and had being given fluids for that. With the nurse present in his room he rapidly deteriorated, blood pressure dropped, he turned purple, and ceased breathing. The patient had a DNR status. No resuscitation was attempted. I visited with sean mata at the bedside. All questions were answered. She had been there when he arrested and had mike terated to the chief nursing executive who came that he was not to be resuscitated. His body is in the proc ess of being released.
--- NOTE | 2018-03-21 17:17 | PRG ---
DATE OF SERVICE: 03/20/2018 SUBJECTIVE: Mr. Sauer's mental status maybe slightly better. He was oriented to person and being in the hospital, but he thought he was in [facility]. PHYSICAL EXAMINATION: VITAL SIGNS: He is afebrile, heart rate 79, respiratory rate is 20, oximetry is 99% on room air, blo od pressure 106/80. LUNGS: Clear. HEART: Regular rhythm. ABDOMEN: Soft and nontender. EXTREMITIES: Without asymmetry or edema. NEUROLOGIC: Grossly nonfocal. LABORATORY DATA: White count 6.5, hemoglobin 8.4, platelets 182. Sodium 141, potassium 4.3, chlorid e 110, bicarbonate 16, BUN 59, creatinine 5.1, and glucose . IMPRESSION: 1. Acute renal failure on dialysis now. 2. Cardiomyopathy. 3. Coronary artery disease. 4. Recent carotid surgery. 5. History of transient ischemic attack. 6. Encephalopathy? multifactorial. 7. Vascular dementia. 8. Toxic metabolic encephalopathy and acute renal failure, all could be contributing . 9. Status post ureteral stenting for noninfected obstructing calculus. I brought the into a separate room, sat down and talked to her for approximately 20 minutes. Th e biggest problem facing Mr. Sauer is progressive weakness. He continues to complain of back pain, b ut it is back pain from lying on his back, ever since he was admitted to the hospital and not uretera l obstruction pain. His is very supportive and hopeful. Hopefully got a point where he is cooperating with physical therapy see above with Dr. Amezcua. He feels he is medically stable to move out of the intermediate care unit to a medical bed.
== END 2018-03-21 12:15 | disposition expired | DRG 871 ==
LOC: ERS 07:40 → IMCU/EMU 11:31 → T4-B 03-20 15:31
PROVIDERS: ADMIT Family Medicine; ATTEND Family Medicine
PROC: 0T778DZ Dilation of Left Ureter with Intraluminal Device, Via Natural or Artificial Opening Endoscopic (ICD-10-PCS; principal; 2018-03-18)
PROC: 5A1D70Z Performance of Urinary Filtration, Intermittent, Less than 6 Hours Per Day (ICD-10-PCS; 2018-03-18)
PROC: 5A1D70Z Performance of Urinary Filtration, Intermittent, Less than 6 Hours Per Day (ICD-10-PCS; 2018-03-19)
PROC: 5A1D70Z Performance of Urinary Filtration, Intermittent, Less than 6 Hours Per Day (ICD-10-PCS; 2018-03-20)
DX: A41.9 Sepsis, unspecified organism (principal); R65.21 Severe sepsis with septic shock; N17.0 Acute kidney failure with tubular necrosis; G93.41 Metabolic encephalopathy; I50.23 Acute on chronic systolic (congestive) heart failure; N18.6 End stage renal disease; I13.0 Hypertensive heart and chronic kidney disease with heart failure and stage 1 through stage 4 chronic kidney disease, or unspecified chronic kidney disease; E87.2 Acidosis; I24.8 Other forms of acute ischemic heart disease; I42.9 Cardiomyopathy, unspecified; N20.1 Calculus of ureter; N13.2 Hydronephrosis with renal and ureteral calculous obstruction; Z66 Do not resuscitate; I46.8 Cardiac arrest due to other underlying condition; E11.8 Type 2 diabetes mellitus with unspecified complications; R33.9 Retention of urine, unspecified; D64.9 Anemia, unspecified; E87.5 Hyperkalemia; R31.9 Hematuria, unspecified; N50.89 Other specified disorders of the male genital organs; E78.00 Pure hypercholesterolemia, unspecified; I95.9 Hypotension, unspecified; N20.0 Calculus of kidney; K59.00 Constipation, unspecified; E66.9 Obesity, unspecified; G47.33 Obstructive sleep apnea (adult) (pediatric); E11.22 Type 2 diabetes mellitus with diabetic chronic kidney disease; E87.6 Hypokalemia; F01.50 Vascular dementia, unspecified severity, without behavioral disturbance, psychotic disturbance, mood disturbance, and anxiety; I25.10 Atherosclerotic heart disease of native coronary artery without angina pectoris; Z68.31 Body mass index [BMI] 31.0-31.9, adult; Z95.1 Presence of aortocoronary bypass graft; Z95.5 Presence of coronary angioplasty implant and graft; Z86.73 Personal history of transient ischemic attack (TIA), and cerebral infarction without residual deficits; Z79.84 Long term (current) use of oral hypoglycemic drugs; Z86.79 Personal history of other diseases of the circulatory system; I25.2 Old myocardial infarction; Z79.899 Other long term (current) drug therapy; Z79.82 Long term (current) use of aspirin; Z87.442 Personal history of urinary calculi
CPT/HCPCS: 36415; 36416; 51702; 74420; 76770; 80048; 80053; 80202; 81001; 81003; 81015; 82533; 82570; 82728; 83540; 83550; 83605; 83735; 84300; 84443; 84484; 85007; 85025; 85027; 87040; 87086; 87340; 90935; 93306; 93970; 96361; 96365; A4216; C1769; G0257; G0365; G8978-GP-CL; G8979-GP-CJ; J0131; J0696; J1642; J1644; J2543; J2704; J3010; J3370; J7050; Q9961